=== PATIENT | female | born 1945 ===

== ENCOUNTER 2017-06-20 08:27 | Day surgery (SDC) | payer MEDICARE, OTHER ==
[2017-06-20] MEDS ORDERED: Lactated Ringer's 1,000 ML IV ONE (09:37)
[2017-06-20 10:00] VITALS: O2SAT 100
[2017-06-20] MEDS ORDERED: Propofol 10 mg/ml Inj (20 ML) ONE (10:24)
[2017-06-20] MEDS ORDERED: Lidocaine 2% MPF (5 ml) Inj ONE (10:25)
[2017-06-20 11:26] VITALS: TEMP 98.5
[2017-06-20 11:38] VITALS: BP 122/67; PULSE 62; RESP 15
== END 2017-06-20 12:19 | disposition home or self-care (01) ==
LOC: H.ENDO 08:27
PROVIDERS: ATTEND Internal Medicine Gastroenterology
DX: K62.89 Other specified diseases of anus and rectum (principal); D12.2 Benign neoplasm of ascending colon; K62.4 Stenosis of anus and rectum; K64.0 First degree hemorrhoids; Z85.038 Personal history of other malignant neoplasm of large intestine; K22.9 Disease of esophagus, unspecified; K31.9 Disease of stomach and duodenum, unspecified; K92.2 Gastrointestinal hemorrhage, unspecified; R63.4 Abnormal weight loss; R19.8 Other specified symptoms and signs involving the digestive system and abdomen
CPT/HCPCS: 43239; 45380; 88305; J2704; J7120

== ENCOUNTER 2018-01-28 23:50 | Inpatient (IN) | payer MEDICARE, OTHER ==
[2018-01-29] MEDS ORDERED: Sodium Chloride 0.9% 1,000 ML IV STA ×2 (01:27→03:44)
--- NOTE | 2018-01-29 01:51 | ED PDOC ---
Syncope/Near Syncope/Dizziness Time Seen by Provider: 01/29/18 00:30 Chief Complaint (Nursing): Dizziness/Lightheaded Chief Complaint (Provider): Dizziness/Lightheaded History Per: Patient History/Exam Limitations: no limitations Onset/Duration Of Symptoms: Days (7) Additional Complaint(s): 72 years old female with history of diabetes, hypertension and colon cancer presents to the ED for evaluation of dizziness associated with headache and weakness onset 1 week. Patient reports experiencing subjective fever. She denies any vomiting or diarrhea. Patient reports living healthy alone with family living nearby. pt is oriented to self and place but not time. PMD: Kip Arteaga Past Medical History Reviewed: Historical Data, Nursing Documentation, Vital Signs Vital Signs: Last Vital Signs Temp 99.1 F 01/28/18 23:52 Pulse 78 01/28/18 23:52 Resp 16 01/28/18 23:52 BP 110/74 01/28/18 23:52 Pulse Ox 99 01/28/18 23:52 - Medical History PMH: Anemia, Diabetes, HTN, Hypercholesterolemia Denies: HIV, Chronic Kidney Disease Other PMH: Colon Cancer - Surgical History Other surgeries: Colon resection - Family History Family History: States: Unknown Family Hx - Social History Current smoker - smoking cessation education provided: Yes (2 pipes a day) Alcohol: None Drugs: Denies - Home Medications Home Medications: Ambulatory Orders Medication Instructions Recorded Unobtainable 06/20/17 - Allergies Allergies/Adverse Reactions: Allergies Allergy/AdvReac Type Severity Reaction Status Date / Time No Known Allergies Allergy Verified 06/20/17 09:35 Review of Systems ROS Statement: Except As Marked, All Systems Reviewed And Found Negative Constitutional: Positive for: Fever (Subjective) Gastrointestinal: Negative for: Vomiting, Diarrhea Neurological: Positive for: Weakness, Headache, Dizziness Physical Exam - Reviewed Nursing Documentation Reviewed: Yes Vital Signs Reviewed: Yes - Physical Exam Appears: Positive for: Non-toxic, No Acute Distress Head Exam: Positive for: ATRAUMATIC, NORMOCEPHALIC Skin: Positive for: Normal Color, Warm, Dry Eye Exam: Positive for: Normal appearance, EOMI, PERRL ENT: Positive for: Normal ENT Inspection Neck: Positive for: Normal, Supple Cardiovascular/Chest: Positive for: Regular Rate, Rhythm. Negative for: Murmur Respiratory: Positive for: Normal Breath Sounds. Negative for: Respiratory Distress Gastrointestinal/Abdominal: Positive for: Normal Exam, Soft. Negative for: Tenderness Back: Positive for: Normal Inspection. Negative for: L CVA Tenderness, R CVA Tenderness Extremity: Positive for: Normal ROM. Negative for: Tenderness, Swelling Neurologic/Psych: Positive for: Alert, Oriented (X2 not to time), Other ( Confused) - Laboratory Results Result Diagrams: 01/30/18 05:30 01/30/18 05:30 - ECG O2 Sat by Pulse Oximetry: 99 (RA) Pulse Ox Interpretation: Normal Medical Decision Making Medical Decision Making: Time: 0126 Initial Plan: confusion, dizziness, and generalized weakness rule out electrolyte abnormality and rule out infection --CMP --Chest X-Ray --CT Head w/o Contrast --CBC --NaCl 1,000 ml IV --Blood Culture --Urine C&S --Urinalysis 0233 CT Head FINDINGS: Brain: There is moderate diffuse cerebral atrophy present, consistent with this patient's age. . No hemorrhage. Areas of decreased attenuation noted within the periventricular and subcortical white matter likely related to chronic microangiopathic ischemic changes given the patient's stated age.Ventricles: Unremarkable. No ventriculomegaly. Bones/joints: Unremarkable. No acute fracture. Soft tissues: Unremarkable. Sinuses: Unremarkable as visualized. No acute sinusitis. Mastoid air cells: Unremarkable as visualized. No mastoid effusion. IMPRESSION: No evidence of acute intracranial hemorrhage. Dictated and Authenticated by: Ketan Quarles MD 01/29/2018 2:33 AM Eastern Time ([place] & [place]) 0241 Labs reviewed and show worse BUN than prior test compared with 2017. Patient has acute renal failure and her sugar is 248. Patient will be given insulin. 0342 Patient will be admitted for family practice. Patient is given fluids for possible dehydration. Chest x-ray is negative on my view. family practice resident aware, pt family aware and agreeable with plan. Scribe Attestation: Documented by Nakita Payne, acting as a scribe for Chantelle Singh MD. Provider Scribe Attestation: All medical record entries made by the Scribe were at my direction and personally dictated by me. I have reviewed the chart and agree that the record accurately reflects my personal performance of the history, physical exam, medical decision making, and the department course for this patient. Disposition - Clinical Impression Clinical Impression: Dizziness, Renal failure (ARF), acute on chronic - Patient ED Disposition Is Patient to be Admitted: Yes Counseled Patient/Family Regarding: Studies Performed, Diagnosis - Disposition Disposition Time: 03:00 Condition: STABLE
[2018-01-29 02:09] LABS: BASO % 0.1 % (0.0-2.0); HEMOGLOBIN 13.3 g/dL (12.0-16.0); LYMPH # 0.4 K/uL (1.0-4.3); LYMPH % 6.6 % (20.0-40.0); MEAN CELL VOLUME 90.1 fl (81.0-99.0); MEAN CORPUSCULAR HEMOGLOBIN 30.3 pg (27.0-31.0); MEAN CORPUSCULAR HGB CONC 33.7 g/dL (33.0-37.0); MEAN PLATELET VOLUME 8.9 fl (7.2-11.7); MONO # 0.5 K/uL (0.0-0.8); MONO % 7.1 % (0.0-10.0); NEUT # 5.5 K/uL (1.8-7.0); NEUT % 86.2 % (50.0-75.0); PLATELET COUNT 205 K/uL (130-400); RBC 4.38 Mil/uL (3.80-5.20); WHITE BLOOD COUNT 6.4 K/uL (4.8-10.8)
[2018-01-29 02:14] LABS: ALB/GLOB RATIO 1.4 (1.0-2.1); ALBUMIN 4.8 g/dL (3.5-5.0); CALCIUM 9.3 mg/dL (8.4-10.2)
[2018-01-29] MEDS ORDERED: Insulin Regular 100 units/ml SC STA (02:39)
[2018-01-29] MEDS ORDERED: Insulin Regular 100 units/ml ONE (03:06)
[2018-01-29] MEDS ORDERED: Potassium Chloride 20 mEq ER Tab PO ONE (03:49)
--- NOTE | 2018-01-29 04:48 | CP.PCM.HP ---
History of Present Illness - History of Present Illness History of Present Illness: 72 y/o F with PMHx of HTN, NIDDM, Dementia, Colon CA presents to ED accompanied by her son complaining of feeling weak, and with poor appetite. Unclear for how long patient has had all her symptoms. She lives alone, and has a homemaker who comes M-F for 2-3 hours. As per her son he was called by his sister today, because their Mom was not doing well. His sister told him that when she went to see their Mom today, she found her walking like a " zombi", looking weak, and coughing. When she asked her about the cough patient stated she was having this cough for 1 day. Also patient was c/o stomach pain, poor appetite, nausea, and had a non bloody vomit yesterday morning. As per Son patient was c/o today of subjective fevers, headaches, and feeling dizzy. Denies chest pain, SOB, diarrheas. Patient has a h/o of dementia, which has been getting worse for the last 2 months now. History obtained from her Son. Patient sleepy, and poor historian. Walks with a Cane. PMD: Dr. Arteaga at [facility] PMHx: HTN, DM, HLD, Dementia, Colon CA Allergies: NKDA Meds:Gabapentin 100 mg TID, Aricept 5 mg qd, atorvastatin 20 mg qd, Nifedipine ER 90 mg qd, lisinopril-Hctz 20-25 mg qd, Janumet XR 100-1000 mg qd, omeprazole 20 mg qd, Ranitidine 150 mg HS. Son states that his sister gives patient her meds. Shx: cataract B/L SocialHx: smoker: 2-3 cigarettes/day for years, no etoh, no illicit drugs. She lives alone, and has a homemaker who comes M-F for 2-3 hours. Code status: unclear, her son states that his sister will know. Will ask patient 's daughter for information. Unknown-Full code for now. Harris Villanueva(son): [phone] ED course: VS: WNL PE: mucous membrane very dry, skin as well labs: CBC, CMP reviewed. CT scan reported as no evidence of intracraneal bleeding in preliminary report. Pending official report tx:reg insulin 4 units SC, IV fluids, godwin placed in ER Present on Admission - Present on Admission Any Indicators Present on Admission: No History of DVT/PE: No History of Uncontrolled Diabetes: No Urinary Catheter: No Decubitus Ulcer Present: No Review of Systems - Review of Systems All systems: reviewed and no additional remarkable complaints except (as per HPI ) Past Patient History - Infectious Disease Hx of Infectious Diseases: None - Tetanus Immunizations Tetanus Immunization: Unknown - Past Medical History & Family History Past Medical History?: Yes - Past Social History Alcohol: None Drugs: Denies - CARDIAC Hx Hypercholesterolemia: Yes Hx Hypertension: Yes - PULMONARY Hx Respiratory Disorders: No - NEUROLOGICAL Hx Neurological Disorder: No - HEENT Hx HEENT Problems: No - RENAL Hx Chronic Kidney Disease: No - ENDOCRINE/METABOLIC Hx Endocrine Disorders: Yes Hx Diabetes Mellitus Type 2: Yes - HEMATOLOGICAL/ONCOLOGICAL Hx Anemia: Yes Hx Human Immunodeficiency Virus (HIV): No - INTEGUMENTARY Hx Dermatological Problems: No - MUSCULOSKELETAL/RHEUMATOLOGICAL Hx Musculoskeletal Disorders: No Hx Falls: Yes - GASTROINTESTINAL Hx Gastrointestinal Disorders: No - GENITOURINARY/GYNECOLOGICAL Hx Urinary Tract Infection: Yes - PSYCHIATRIC Hx Psychophysiologic Disorder: No Hx Substance Use: No - SURGICAL HISTORY Hx Surgeries: Yes Hx Hysterectomy: Yes Other/Comment: COLECTOMY - ANESTHESIA Hx Anesthesia: Yes Hx Anesthesia Reactions: No Hx Malignant Hyperthermia: No Meds Allergies/Adverse Reactions: Allergies Allergy/AdvReac Type Severity Reaction Status Date / Time No Known Allergies Allergy Verified 06/20/17 09:35 Physical Exam - Constitutional Appears: Non-toxic, No Acute Distress, Confused - Head Exam Head Exam: ATRAUMATIC, NORMOCEPHALIC - Eye Exam Eye Exam: EOMI, PERRL. absent: Conjunctival injection, Nystagmus - ENT Exam ENT Exam: Mucous Membranes Dry - Respiratory Exam Respiratory Exam: Decreased Breath Sounds (bilateral), Clear to Auscultation Bilateral, NORMAL BREATHING PATTERN - Cardiovascular Exam Cardiovascular Exam: REGULAR RHYTHM, +S1, +S2 - GI/Abdominal Exam GI & Abdominal Exam: Normal Bowel Sounds, Soft. absent: Guarding, Rebound, Rigid, Tenderness - Extremities Exam Extremities exam: Positive for: normal inspection. Negative for: calf tenderness, pedal edema - Back Exam Back exam: absent: CVA tenderness (L), CVA tenderness (R) - Neurological Exam Additional comments: Confused. Sleeping, but able to arouse to verbal and tactile stimuli. Oriented to person - Skin Skin Exam: Dry, Intact, Normal Color, Warm Results - Vital Signs Recent Vital Signs: Last Vital Signs Temp 99.1 F 01/28/18 23:52 Pulse 72 01/29/18 03:18 Resp 16 01/28/18 23:52 BP 110/74 01/28/18 23:52 Pulse Ox 99 01/29/18 03:45 - Labs Result Diagrams: 01/29/18 01:55 01/29/18 01:55 Labs: Laboratory Results - last 24 hr 01/28/18 01/29/18 01/29/18 23:53 01:55 01:55 WBC 6.4 RBC 4.38 Hgb 13.3 Hct 39.4 MCV 90.1 MCH 30.3 MCHC 33.7 RDW 15.0 H Plt Count 205 MPV 8.9 Neut % (Auto) 86.2 H Lymph % (Auto) 6.6 L [place] % (Auto) 7.1 Eos % (Auto) 0.0 Baso % (Auto) 0.1 Neut # (Auto) 5.5 Lymph # (Auto) 0.4 L [place] # (Auto) 0.5 Eos # (Auto) 0.0 Baso # (Auto) 0.0 Sodium 138 Potassium 3.5 L Chloride 89 L Carbon Dioxide 29 Anion Gap 24 H BUN 64 H Creatinine 1.8 H Est GFR ( Amer) 34 Est GFR (Non-Af Amer) 28 POC Glucose (mg/dL) 242 H Random Glucose 248 H Calcium 9.3 Total Bilirubin 0.7 AST 26 ALT 14 Alkaline Phosphatase 73 Total Protein 8.2 Albumin 4.8 Globulin 3.4 Albumin/Globulin Ratio 1.4 01/29/18 03:16 WBC RBC Hgb Hct MCV MCH MCHC RDW Plt Count MPV Neut % (Auto) Lymph % (Auto) [place] % (Auto) Eos % (Auto) Baso % (Auto) Neut # (Auto) Lymph # (Auto) [place] # (Auto) Eos # (Auto) Baso # (Auto) Sodium Potassium Chloride Carbon Dioxide Anion Gap BUN Creatinine Est GFR ( Amer) Est GFR (Non-Af Amer) POC Glucose (mg/dL) 196 H Random Glucose Calcium Total Bilirubin AST ALT Alkaline Phosphatase Total Protein Albumin Globulin Albumin/Globulin Ratio Assessment & Plan - Assessment and Plan (Free Text) Assessment: 72 y/o F with PMHx of HTN, NIDDM, HLD, Dementia who presents with weakness and poor oral intake being admitted for acute kidney injury. Plan: Acute Kidney Injury -MedSurg -most likely 2/2 Prerenal azothemia 2/2 dehydration from poor oral intake in a setting of dementia, but Viral vs Bacteria infection should be r/o -BUN/Cr on admission 64/1.8. Normal creatinine 0.9, and GFR>60 on prior test dated 06/16/17 -afebrile in ER -No tachy, no hypotensive on admission -no leukocytosis in CBC, but noted elevated neutroph % -f/u UA, Urine lytes, and urine culture -f/u Blood Cx done in ER -f/u EKG -CXR: read by me, no gross evidence of infiltration, f/u official report -Will receive IV fluids in ER (fluids have not been given at the time of ER eval ) -will re-test BMP later, after fluids NIDDM -uncontrolled -last HgbA1C on [email or web address] was 10 % on 08/18/16 -hyperglycemia on admission in a setting of suspected dehydration -will hold home Janumet ( sitaglitin/metformin) for now because impaired real function -start Insulin lispro SC by sliding scale low coverage TID -accucheck ACHS -repeat HgbA1C -repeat lipid profile -hypoglycemic protocol HTN -will hold BP meds for now due to BP close to low normal -adjust meds as needed based on her age and BP goals -on Nifedipine ER 90 mg daily at home -on lisinopril-Hctz 20-25 daily at home -last lipid profile done on 08/18/17: remarkable for mild elevated chol/202 Dementia -c/w home aricept 5 mg qd -normal TSH on 08/18/16 -normal Vit B12 on 08/18/16 Hypokalemia -mild, 3.5 on admission -replace with potassium chloride 20 meq once -f/u BMP DVT prophylaxis SCDs Heparin SC - Date & Time Date: 01/29/18 Time: 04:30
[2018-01-29] MEDS ORDERED: Glucagon Recombinant 1 mg Inj IM PRN (04:51)
[2018-01-29] MEDS ORDERED: Dextrose 50% SYRINGE Inj (50 ml) IV PRN (04:51)
[2018-01-29 05:35] LABS: ANISOCYTOSIS SLIGHT; HYPOCHROMIC SLIGHT; LYMPHOCYTE 9 % (20-50); MONOCYTE 5 % (0-10); MYELOCYTE 3 % (0-0); NEUTROPHIL 83 % (42-75); OVALOCYTES SLIGHT; PLATELET ESTIMATE NORMAL (NORMAL); SCHISTOCYTES SLIGHT; TOTAL CELLS COUNTED 100
[2018-01-29 06:59] LABS: SQUAMOUS EPITHIAL < 1 /hpf (0-5); URINE BILIRUBIN NEGATIVE (NEGATIVE); URINE BLOOD NEGATIVE (NEGATIVE); URINE CLARITY SLIGHTY-CLOUDY (Clear); URINE COLOR YELLOW (YELLOW); URINE GLUCOSE (UA) NEG (Normal); URINE LEUKOCYTE ESTERASE NEG Leu/uL (Negative); URINE PROTEIN NEGATIVE (NEGATIVE); URINE UROBILINOGEN 0.2-1.0 mg/dL (0.2-1.0)
--- NOTE | 2018-01-29 09:16 | CARD ---
APPROVED REPORT EKG Measurement Heart [id number] <Conclusion> Sinus rhythm with premature atrial complexes Otherwise normal ECG
[2018-01-29] MEDS: Insulin Lispro (humaLOG) 100 Units/ml Inj SC SCH ×3 (09:23→17:57)
[2018-01-29] MEDS ORDERED: Sodium Chloride 0.9% 1,000 ML IV SCH (10:15)
[2018-01-29 10:20] LABS: CALCIUM 9.3 mg/dL (8.4-10.2)
--- NOTE | 2018-01-29 10:23 | RAD ---
HISTORY: subj fever COMPARISON: 02/20/2015 FINDINGS: LUNGS: No focal airspace opacity. PLEURA: No significant pleural effusion identified, no pneumothorax apparent.Biapical pleural parenchymal thickening noted. CARDIOVASCULAR: Stable. OSSEOUS STRUCTURES: Generalized osteopenia. Degenerative changes in bilateral shoulders. VISUALIZED UPPER ABDOMEN: Upper abdomen is suboptimally evaluated. OTHER FINDINGS: None. IMPRESSION: No focal airspace opacity.
[2018-01-29] MEDS: Pantoprazole 40 mg EC Tab PO SCH (10:28)
[2018-01-29] MEDS: guaiFENesin 600 mg ER Tab PO SCH ×2 (10:28→21:05)
[2018-01-29] MEDS: Sodium Chloride 0.9% 1,000 ML IV SCH ×4 (10:35→21:18)
--- NOTE | 2018-01-29 10:46 | CT ---
PROCEDURE: CT HEAD WITHOUT CONTRAST. HISTORY: headache COMPARISON: Comparison is made with the previous study dated 02/19/2015 TECHNIQUE: Axial computed tomography images were obtained through the head/brain without intravenous contrast. Radiation dose: Total exam DLP = 752.76 mGy-cm. This CT exam was performed using one or more of the following dose reduction techniques: Automated exposure control, adjustment of the mA and/or kV according to patient size, and/or use of iterative reconstruction technique. FINDINGS: HEMORRHAGE: No intracranial hemorrhage. BRAIN: No mass effect or edema. [id number] atrophy is again noted. Mild to moderate white matter chronic microvascular ischemic changes are also noted. VENTRICLES: Unremarkable. No hydrocephalus. CALVARIUM: Unremarkable. PARANASAL SINUSES: Unremarkable as visualized. No significant inflammatory changes. MASTOID AIR CELLS: Unremarkable as visualized. No inflammatory changes. OTHER FINDINGS: None. IMPRESSION: No evidence of acute intracranial hemorrhage mass effect or midline shift. [id number] atrophy and chronic microvascular white matter ischemic disease.
--- NOTE | 2018-01-29 13:14 | CP.PCM.PN ---
Subjective - Date & Time of Evaluation Date of Evaluation: 01/29/18 Time of Evaluation: 13:12 - Subjective Subjective: 72 y/o female w/ hx of DM, HTN, colon cancer s/p partial colectomy admitted w/ c /o dizziness, headaches, and weakness. She is a poor historian, able to identify self, oriented to place, but not time. Objective - Vital Signs/Intake and Output Vital Signs (last 24 hours): Temp Pulse Resp BP Pulse Ox 97.8 F 69 20 138/77 99 01/29/18 08:48 01/29/18 08:48 01/29/18 08:48 01/29/18 08:48 01/29/18 08:48 - Medications Medications: Current Medications Acetaminophen (Tylenol 325mg Tab) 650 mg PO Q6 PRN PRN Reason: Headache Last Admin: 01/29/18 10:12 Dose: 650 mg Atorvastatin Calcium (Lipitor) 20 mg PO HS ROSE Dextrose (Dextrose 50% Inj) 0 ml IV STAT PRN; Protocol PRN Reason: Hypoglycemia Protocol Dextrose (Glutose 15) 0 gm PO ONCE PRN; Protocol PRN Reason: Hypoglycemia Protocol Donepezil HCl (Aricept) 5 mg PO HS ROSE Gabapentin (Neurontin) 100 mg PO TID PRN PRN Reason: Pain, moderate (4-7) Glucagon (Glucagen Diagnostic Kit) 0 mg IM STAT PRN; Protocol PRN Reason: Hypoglycemia Protocol Guaifenesin (Mucinex La) 600 mg PO Q12 ROSE Last Admin: 01/29/18 10:28 Dose: 600 mg Heparin Sodium (Porcine) (Heparin) 5,000 units SC Q8 ROSE PRN Reason: Protocol Last Admin: 01/29/18 10:29 Dose: 5,000 units Sodium Chloride (Sodium Chloride 0.9%) 1,000 mls @ 250 mls/hr IV .Q4H ROSE Stop: 01/30/18 10:15 Last Admin: 01/29/18 10:35 Dose: 250 mls/hr Insulin Human Lispro (Humalog) 0 units SC TID ROSE PRN Reason: Protocol Last Admin: 01/29/18 09:23 Dose: Not Given Pantoprazole Sodium (Protonix Ec Tab) 40 mg PO DAILY ROSE Last Admin: 01/29/18 10:28 Dose: 40 mg - Labs Labs: 01/29/18 01:55 01/29/18 09:57 - Constitutional Appears: No Acute Distress, Confused - ENT Exam ENT Exam: Mucous Membranes Dry - Respiratory Exam Respiratory Exam: Clear to Ausculation Bilateral, NORMAL BREATHING PATTERN - Cardiovascular Exam Cardiovascular Exam: REGULAR RHYTHM, +S1, +S2 - GI/Abdominal Exam GI & Abdominal Exam: Soft, Normal Bowel Sounds. absent: Tenderness - Neurological Exam Neurological Exam: Alert, Awake Additional comments: not oriented to time - Skin Skin Exam: Dry, Intact, Warm Assessment and Plan - Assessment and Plan (Free Text) Assessment: 72 y/o F with PMHx of HTN, NIDDM, HLD, and dementia admitted for acute kidney injury. Plan: 1) Acute Kidney Injury -Cr. 1.4 today from yesterday's 1.8 -most likely 2/2 Prerenal azothemia 2/2 dehydration from poor oral intake in a setting of dementia, but Viral vs Bacteria infection should be r/o -on lisinopril-HCTC 20-25 mg QD at home -BUN/Cr on admission 64/1.8. Normal creatinine 0.9, and GFR>60 on prior test dated 06/16/17 -UA, Urine lytes, and urine culture ordered - Blood Cx done, pending -EKG sinus rhythm, some PACs, otherwise normal -follow I/Os 2. NIDDM -uncontrolled, HgbA1C 01/29/18= 7.1 -hyperglycemia on admission in a setting of suspected dehydration; no ketonurea -will hold home Janumet ( sitaglitin/metformin) for now because impaired real function -start Insulin lispro SC by sliding scale low coverage TID -accucheck ACHS -hypoglycemic protocol 3. HTN -will hold BP meds for now due to BP close to low normal -adjust meds as needed based on her age and BP goals -on Nifedipine ER 90 mg daily at home -on lisinopril-Hctz 20-25 daily at home 4. Dementia -c/w home aricept 5 mg qd -normal TSH on 08/18/16 -normal Vit B12 on 08/18/16 5. Hypokalemia -K+ 3.8 today -replaced with potassium chloride 20 meq once -f/u BMP 6. Diet -consistent carbohydrate 7. DVT prophylaxis SCDs Heparin SC
--- NOTE | 2018-01-29 18:58 | RAD ---
HISTORY: abdominal pain COMPARISON: CT scan of the abdomen and pelvis dated 09/15/2014. FINDINGS: BOWEL: Prominent amount of retained colonic stool. No obstruction. No free air. BONES: Normal. OTHER FINDINGS: X-ray artifact limits evaluation. IMPRESSION: X-ray artifact slightly limits evaluation. Prominent amount of retained colonic stool. No obstruction.
[2018-01-29] MEDS ORDERED: Chlorhexidine Gluconate 1 APPL/PKT TP ONE (19:36)
[2018-01-29] MEDS ORDERED: Lactulose 10 gm/15 ml Syrup PO ONE (20:05)
[2018-01-30] MEDS: Sodium Chloride 0.9% 1,000 ML IV SCH ×4 (02:32→21:00)
[2018-01-30 06:17] LABS: HEMOGLOBIN 11.8 g/dL (12.0-16.0); MEAN CELL VOLUME 90.8 fl (81.0-99.0); MEAN CORPUSCULAR HEMOGLOBIN 30.8 pg (27.0-31.0); MEAN CORPUSCULAR HGB CONC 33.9 g/dL (33.0-37.0); RBC 3.83 Mil/uL (3.80-5.20); RED CELL DISTRIBUTION WIDTH 15.1 % (11.5-14.5); WHITE BLOOD COUNT 4.2 K/uL (4.8-10.8)
[2018-01-30 06:43] LABS: BLOOD UREA NITROGEN 31 mg/dl (7-17); CALCIUM 8.6 mg/dL (8.4-10.2); GFR AFRICAN-AMERICAN > 60; GFR NON-AFRICAN AMERICAN > 60
[2018-01-30] MEDS ORDERED: Potassium Chloride 20 mEq/15 ml LIQ UD PO ONE (07:03)
[2018-01-30] MEDS: Pantoprazole 40 mg EC Tab PO SCH (08:57)
[2018-01-30] MEDS: guaiFENesin 600 mg ER Tab PO SCH ×2 (08:57→21:52)
[2018-01-30] MEDS ORDERED: Magnesium Hydroxide Susp 30 ml UD PO SCH (09:00)
[2018-01-30] MEDS ORDERED: Magnesium Hydroxide Susp 30 ml UD PO ONE (09:02)
[2018-01-30] MEDS: Insulin Lispro (humaLOG) 100 Units/ml Inj SC SCH ×3 (09:57→16:58)
[2018-01-30] MEDS ORDERED: Alum-Mag Hydrox-Simethicone Susp (30 mL) PO ONE (10:01)
--- NOTE | 2018-01-30 10:40 | CP.PCM.PN ---
Subjective - Date & Time of Evaluation Date of Evaluation: 01/30/18 Time of Evaluation: 10:38 - Subjective Subjective: In-demand #[id number]. Patient is seen and examined at bedside. She is a poor historian, more alert than yesterday. C/o abdominal pain w/ constipation, and headache. Objective - Vital Signs/Intake and Output Vital Signs (last 24 hours): Temp Pulse Resp BP Pulse Ox 98.0 F 54 L 18 152/77 H 96 01/30/18 08:06 01/30/18 08:06 01/30/18 08:06 01/30/18 08:06 01/30/18 08:06 - Medications Medications: Current Medications Acetaminophen (Tylenol 325mg Tab) 650 mg PO Q6 PRN PRN Reason: Headache Last Admin: 01/29/18 10:12 Dose: 650 mg Atorvastatin Calcium (Lipitor) 20 mg PO HS [facility] Last Admin: 01/29/18 21:05 Dose: 20 mg Dextrose (Dextrose 50% Inj) 0 ml IV STAT PRN; Protocol PRN Reason: Hypoglycemia Protocol Dextrose (Glutose 15) 0 gm PO ONCE PRN; Protocol PRN Reason: Hypoglycemia Protocol Donepezil HCl (Aricept) 5 mg PO HS [facility] Last Admin: 01/29/18 21:16 Dose: 5 mg Gabapentin (Neurontin) 100 mg PO TID PRN PRN Reason: Pain, moderate (4-7) Glucagon (Glucagen Diagnostic Kit) 0 mg IM STAT PRN; Protocol PRN Reason: Hypoglycemia Protocol Guaifenesin (Mucinex La) 600 mg PO Q12 [facility] Last Admin: 01/30/18 08:57 Dose: 600 mg Heparin Sodium (Porcine) (Heparin) 5,000 units SC Q8 ROSE PRN Reason: Protocol Last Admin: 01/30/18 08:57 Dose: 5,000 units Insulin Human Lispro (Humalog) 0 units SC TID [facility] PRN Reason: Protocol Last Admin: 01/30/18 09:57 Dose: Not Given Pantoprazole Sodium (Protonix Ec Tab) 40 mg PO DAILY [facility] Last Admin: 01/30/18 08:57 Dose: 40 mg - Labs Labs: 01/30/18 05:30 01/30/18 05:30 - Constitutional Appears: Well, No Acute Distress - Head Exam Head Exam: ATRAUMATIC, NORMAL INSPECTION - ENT Exam ENT Exam: Mucous Membranes Dry (improved from yesterday) - Respiratory Exam Respiratory Exam: Clear to Ausculation Bilateral, NORMAL BREATHING PATTERN - Cardiovascular Exam Cardiovascular Exam: REGULAR RHYTHM, +S1, +S2 - GI/Abdominal Exam GI & Abdominal Exam: Distended, Soft, Tenderness, Hypoactive Bowel Sounds - Extremities Exam Extremities Exam: absent: Pedal Edema, Tenderness - Neurological Exam Neurological Exam: Alert, Awake - Skin Skin Exam: Dry, Intact, Warm Assessment and Plan - Assessment and Plan (Free Text) Assessment: 72 y/o F with PMHx of HTN, NIDDM, HLD, and dementia admitted for acute kidney injury. Plan: 1) Acute Kidney Injury -Cr. improving, is now 0.7 -hydrating w/ IV NS 100mL/hr -most likely 2/2 Prerenal azothemia 2/2 dehydration from poor oral intake in a setting of dementia, but Viral vs Bacteria infection should be r/o -on lisinopril-HCTC 20-25 mg QD at home -BUN/Cr on admission 64/1.8. Normal creatinine 0.9, and GFR>60 on prior test dated 06/16/17 -UA, Urine lytes, and urine culture ordered - Blood Cx done, pending -EKG sinus rhythm, some PACs, otherwise normal -follow I/Os 2) Abdominal pain -KUB: no obstruction, retained colonic stool -Patient declined fleet enema -1 BM today -Maalox 30 mL PO given 3)Headache -likely 2/2 dehydration -Head CT scan 01/29 no acute changes -No visual changes/eye pain 4. NIDDM -uncontrolled, HgbA1C 01/29/18= 7.1 -hyperglycemia on admission in a setting of suspected dehydration; no ketonurea -will hold home Janumet ( sitaglitin/metformin) for now because impaired real function -start Insulin lispro SC by sliding scale low coverage TID -accucheck ACHS -hypoglycemic protocol 5. HTN -will hold BP meds for now due to BP close to low normal -adjust meds as needed based on her age and BP goals -on Nifedipine ER 90 mg daily at home -on lisinopril-Hctz 20-25 daily at home 6. Dementia -c/w home aricept 5 mg qd -normal TSH on 08/18/16 -normal Vit B12 on 08/18/16 7. Hypokalemia -K+ 3.0 today -replaced with potassium chloride 40 meq once -f/u BMP 8. Diet -consistent carbohydrate 9. DVT prophylaxis SCDs Heparin SC
--- NOTE | 2018-01-30 17:05 | CT ---
Date of service: 01/30/2018 PROCEDURE: CT Abdomen and Pelvis without intravenous contrast HISTORY: persistent abdominal pain/nausea COMPARISON: CT scan of the abdomen pelvis dated 09/15/2014. TECHNIQUE: Contiguous images were obtained from the domes of the diaphragms to the upper thighs without the administration of intravenous contrast. Oral contrast was not administered. Radiation dose: Total exam DLP = 365.4 mGy-cm. This CT exam was performed using one or more of the following dose reduction techniques: Automated exposure control, adjustment of the mA and/or kV according to patient size, and/or use of iterative reconstruction technique. FINDINGS: LOWER THORAX: Cardiomegaly. No focal consolidation. Trace left pleural effusion. LIVER: Small too small to characterize cystic structure in the posterior right hepatic lobe. No gross lesion or ductal dilatation. GALLBLADDER AND BILE DUCTS: Unremarkable. Mildly prominent CBD PANCREAS: Stable appearance of cystic structure in the pancreatic body. No gross lesion or ductal dilatation. SPLEEN: Unremarkable. ADRENALS: Unremarkable. No mass. KIDNEYS AND URETERS: Stable right upper pole renal cyst. No hydronephrosis. No solid mass. VASCULATURE: Unremarkable. No aortic aneurysm. BOWEL: Proximal jejunojejunal intussusception with marked dilatation of the duodenum and stomach. Collapse of small-bowel distally. No gross mural thickening. APPENDIX: No findings to suggest acute appendicitis. PERITONEUM: Unremarkable. No free fluid. No free air. LYMPH NODES: Unremarkable. No enlarged lymph nodes. BLADDER: Unremarkable. REPRODUCTIVE: Unremarkable. BONES: No acute fracture. OTHER FINDINGS: None. IMPRESSION: Limited evaluation due due to absence of intravenous and enteric contrast. Proximal jejunojejunal intussusception with marked dilatation of the duodenum and stomach. Additional findings as above. Findings conveyed to PRISCILLA Marie by Dr. Beebe at 4:59 p.m. on 01/30/2018.
--- NOTE | 2018-01-30 22:52 | CP.PCM.CON ---
<Marine Jones - Last Filed: 01/30/18 23:33> History of Present Illness - History of Present Illness History of Present Illness: Surgery 72 F w PMH of colon CA s/p colectomy, chemo, gastritis , DM and dementia came with weakness, decreased appetite, epigastric pain, nausea and vomiting. Surgery is consulted to evaluate for intussusception. Pt has dementia and history and ROS is taken from the family and from chart. Pt had endoscopy done in 05/2017 for unintentional weight loss and survaillence colonoscopy done. It showed gastritis and h pylori. Pt was treated for h pylori and completed the treatment. Colonoscopy showed ascending colon polyp and narrowing of the rectum. PT has been having these symptoms since for about 6 months since then. Pain is mainly located on epigastric area. sharp and doesn't radiate. pt has been constipated and relieved with metamucil. Reports nausea and vomiting. Had an episode of non bilious non bloody emesis 2 days ago. Family also reports unintentional weight loss of about 20 lbs in last 3 month. Denies fever, diarrhea, CP, SOB, hematemesis, hematochezia, hematuria, dysuria. Pt was admitted for CAITLYN, dehydration, AMS . CAITLYN Now resolved after hydration. Pt is combative and refusing physical exam, NGT and Grant at this time. PMH see above. PSH : hysterectomy for fibroids 30 yrs ago, colectomy at [facility] in 1999. cataract sx , EGD/colon in 2016 SS: smoker: 2 cigars a day. non drinker, no drug use. Pt lives by herself and normally is able to perform daily activity of living with help. Pt has home help. Walks with walker. Family lives near by. No advance directives, No POA. Family (children) makes medical decisions for her. They wishes to remain full code. Review of Systems - Review of Systems Systems not reviewed;Unavailable: Dementia Review of Systems: See HPI Past Patient History - Infectious Disease Hx of Infectious Diseases: None - Tetanus Immunizations Tetanus Immunization: Unknown - Past Medical History & Family History Past Medical History?: Yes - Past Social History Smoking Status: Current Some Days Smoker Cigar Use: Yes Drugs: Denies Home Situation {Lives}: Alone - CARDIAC Hx Hypercholesterolemia: Yes Hx Hypertension: Yes - PULMONARY Hx Respiratory Disorders: No - NEUROLOGICAL Hx Neurological Disorder: No - HEENT Hx HEENT Problems: No - RENAL Hx Chronic Kidney Disease: No - ENDOCRINE/METABOLIC Hx Endocrine Disorders: Yes Hx Diabetes Mellitus Type 2: Yes - HEMATOLOGICAL/ONCOLOGICAL Hx Anemia: Yes Hx Human Immunodeficiency Virus (HIV): No - INTEGUMENTARY Hx Dermatological Problems: No - MUSCULOSKELETAL/RHEUMATOLOGICAL Hx Musculoskeletal Disorders: No Hx Falls: No - GASTROINTESTINAL Hx Gastrointestinal Disorders: No Other/Comment: hx colectomy due to colon ca - GENITOURINARY/GYNECOLOGICAL Hx Urinary Tract Infection: Yes - PSYCHIATRIC Hx Psychophysiologic Disorder: No - SURGICAL HISTORY Hx Surgeries: Yes Hx Hysterectomy: Yes Other/Comment: COLECTOMY - ANESTHESIA Hx Anesthesia: Yes Hx Anesthesia Reactions: No Hx Malignant Hyperthermia: No Meds Allergies/Adverse Reactions: Allergies Allergy/AdvReac Type Severity Reaction Status Date / Time No Known Allergies Allergy Verified 06/20/17 09:35 - Medications Medications: Current Medications Acetaminophen (Tylenol 325mg Tab) 650 mg PO Q6 PRN PRN Reason: Headache Last Admin: 01/29/18 10:12 Dose: 650 mg Atorvastatin Calcium (Lipitor) 20 mg PO HS [facility] Last Admin: 01/30/18 21:52 Dose: 20 mg Dextrose (Dextrose 50% Inj) 0 ml IV STAT PRN; Protocol PRN Reason: Hypoglycemia Protocol Dextrose (Glutose 15) 0 gm PO ONCE PRN; Protocol PRN Reason: Hypoglycemia Protocol Donepezil HCl (Aricept) 5 mg PO HS [facility] Last Admin: 01/30/18 21:51 Dose: 5 mg Gabapentin (Neurontin) 100 mg PO TID PRN PRN Reason: Pain, moderate (4-7) Glucagon (Glucagen Diagnostic Kit) 0 mg IM STAT PRN; Protocol PRN Reason: Hypoglycemia Protocol Guaifenesin (Mucinex La) 600 mg PO Q12 [facility] Last Admin: 01/30/18 21:52 Dose: 600 mg Heparin Sodium (Porcine) (Heparin) 5,000 units SC Q8 [facility] PRN Reason: Protocol Last Admin: 01/30/18 17:01 Dose: Not Given Sodium Chloride (Sodium Chloride 0.9%) 1,000 mls @ 100 mls/hr IV .Q10H [facility] Stop: 01/31/18 10:54 Last Admin: 01/30/18 11:20 Dose: 100 mls/hr Insulin Human Lispro (Humalog) 0 units SC TID [facility] PRN Reason: Protocol Last Admin: 01/30/18 16:58 Dose: Not Given Ondansetron HCl (Zofran Inj) 4 mg IVP Q4 PRN PRN Reason: Nausea/Vomiting Last Admin: 01/30/18 15:42 Dose: 4 mg Pantoprazole Sodium (Protonix Ec Tab) 40 mg PO DAILY [facility] Last Admin: 01/30/18 08:57 Dose: 40 mg Physical Exam - Constitutional Appears: Non-toxic, Combative, Confused, Cachectic - Head Exam Head Exam: ATRAUMATIC, NORMAL INSPECTION, NORMOCEPHALIC - Eye Exam Eye Exam: EOMI, Normal appearance, PERRL Pupil Exam: NORMAL ACCOMODATION, PERRL - ENT Exam ENT Exam: Mucous Membranes Moist, Normal Exam - Neck Exam Neck exam: Positive for: Normal Inspection - Respiratory Exam Respiratory Exam: NORMAL BREATHING PATTERN - Cardiovascular Exam Cardiovascular Exam: Bradycardia - GI/Abdominal Exam GI & Abdominal Exam: Distended, Soft, Tenderness. absent: Firm, Guarding, Hernia, Mass, Pulsatile Mass, Rebound, Rigid - Rectal Exam Rectal Exam: Deferred - Extremities Exam Extremities exam: Positive for: normal inspection - Psychiatric Exam Psychiatric exam: Agitated - Skin Skin Exam: Intact, Warm Results - Vital Signs Recent Vital Signs: Last Vital Signs Temp 98.6 F 01/30/18 17:00 Pulse 54 L 01/30/18 17:00 Resp 20 01/30/18 17:00 BP 167/79 H 01/30/18 17:00 Pulse Ox 100 01/30/18 17:00 - Labs Result Diagrams: 01/30/18 05:30 01/30/18 05:30 Labs: Laboratory Results - last 24 hr 01/29/18 01/30/18 01/30/18 21:57 05:30 05:30 WBC 4.2 L RBC 3.83 Hgb 11.8 L Hct 34.8 MCV 90.8 MCH 30.8 MCHC 33.9 RDW 15.1 H Plt Count 153 Sodium 138 Potassium 3.0 L Chloride 103 Carbon Dioxide 28 Anion Gap 10 BUN 31 H Creatinine 0.7 Est GFR ( Amer) > 60 Est GFR (Non-Af Amer) > 60 POC Glucose (mg/dL) 145 H Random Glucose 112 H Calcium 8.6 01/30/18 01/30/18 01/30/18 05:39 10:58 15:28 WBC RBC Hgb Hct MCV MCH MCHC RDW Plt Count Sodium Potassium Chloride Carbon Dioxide Anion Gap BUN Creatinine Est GFR ( Amer) Est GFR (Non-Af Amer) POC Glucose (mg/dL) 126 H 105 134 H Random Glucose Calcium 01/30/18 21:07 WBC RBC Hgb Hct MCV MCH MCHC RDW Plt Count Sodium Potassium Chloride Carbon Dioxide Anion Gap BUN Creatinine Est GFR ( Amer) Est GFR (Non-Af Amer) POC Glucose (mg/dL) 156 H Random Glucose Calcium Assessment & Plan - Assessment and Plan (Free Text) Assessment: 72 F w ho colon CA , h-pylori now have intussusception CT : proximal small bowel jejuno-jejunal intussusception with markedly dilated stomach and duodenum Pt is high risk surgical candidate with multiple coormorbidities including Colon CA No acute surgical intervention at this time: Pt is currently hemodynamically stable. NPO IVF NGT to decompress stomach: Pt refusing. May require chemical/physical restraints. Pt is a high risk for aspiration Strict intake and output: Grant : Pt refusing. Recommend GI consult: for possible double lumen enteroscopy to reduce intussusception. CEA: to r/o recurrent CA Recommend PET CT w IV/PO contrast to r/o recurrent metastatic CA DW Dr. Clemons <Sajan Clemons - Last Filed: 02/02/18 16:26> Results - Vital Signs Recent Vital Signs: Last Vital Signs Temp 98.8 F 02/02/18 08:23 Pulse 92 H 02/02/18 08:23 Resp 20 02/02/18 08:23 BP 143/66 02/02/18 08:23 Pulse Ox 98 02/02/18 08:23 - Labs Result Diagrams: 02/01/18 08:30 02/02/18 05:55 Labs: Laboratory Results - last 24 hr 02/01/18 02/01/18 02/02/18 16:16 21:08 05:55 Sodium 139 Potassium 3.1 L Chloride 96 L Carbon Dioxide 33 H Anion Gap 13 BUN 12 Creatinine 0.6 L Est GFR ( Amer) > 60 Est GFR (Non-Af Amer) > 60 POC Glucose (mg/dL) 104 141 H Random Glucose 155 H Calcium 8.8 Phosphorus 2.1 L Magnesium 2.0 02/02/18 02/02/18 06:05 11:25 Sodium Potassium Chloride Carbon Dioxide Anion Gap BUN Creatinine Est GFR ( Amer) Est GFR (Non-Af Amer) POC Glucose (mg/dL) 149 H 130 H Random Glucose Calcium Phosphorus Magnesium Assessment & Plan - Assessment and Plan (Free Text) Plan: I personally saw and examined the patient with the resident staff and agree with the above assessment and plan. I personally reviewed the available diagnostic images and imaging reports. Proximal SB intussception just distal to LOT causing proximal SBO/GOO. NGT, GI for EGD/enteroscopy eval and reduction. No acute need for surgical intervention and patient high risk. Less invasive endoscopy better treatment option. Cause of intusception further eval for pathological lead point. Also hx of CRC, CT IV/PO contrast for surveillance or PET/CT when current issue resolves. - Date & Time Date: 01/31/18
[2018-01-30] MEDS ORDERED: Chlorhexidine Gluconate 1 APPL/PKT TP ONE (23:16)
[2018-01-31] MEDS: Sodium Chloride 0.9% 1,000 ML IV SCH ×2 (00:57→07:00)
[2018-01-31 06:57] LABS: BASO % 0.3 % (0.0-2.0); EOS % 0.2 % (0.0-4.0); HEMOGLOBIN 12.1 g/dL (12.0-16.0); LYMPH # 0.7 K/uL (1.0-4.3); LYMPH % 17.1 % (20.0-40.0); MEAN CELL VOLUME 90.3 fl (81.0-99.0); MEAN CORPUSCULAR HEMOGLOBIN 30.8 pg (27.0-31.0); MEAN CORPUSCULAR HGB CONC 34.2 g/dL (33.0-37.0); MEAN PLATELET VOLUME 8.7 fl (7.2-11.7); MONO # 0.5 K/uL (0.0-0.8); MONO % 11.5 % (0.0-10.0); NEUT % 70.9 % (50.0-75.0); NRBC % 0.1 % (0.0-0.0); RBC 3.93 Mil/uL (3.80-5.20); RED CELL DISTRIBUTION WIDTH 14.9 % (11.5-14.5); WHITE BLOOD COUNT 4.3 K/uL (4.8-10.8)
[2018-01-31 07:02] LABS: INR 1.2 (0.9-1.2); PARTIAL THROMBOPLASTIN TIME 35.7 Seconds (25.6-37.1); PROTHROMBIN TIME 12.9 Seconds (9.8-13.1)
[2018-01-31 07:18] LABS: B-TYPE NATRIURETIC PEPTIDE 834 pg/ml (0-900)
[2018-01-31 08:03] LABS: BLOOD UREA NITROGEN 22 mg/dl (7-17); GFR AFRICAN-AMERICAN > 60; GFR NON-AFRICAN AMERICAN > 60
[2018-01-31 08:17] VITALS: RESP 20
--- NOTE | 2018-01-31 08:33 | CP.PCM.CON ---
<Jad Clemons - Last Filed: 01/31/18 10:11> History of Present Illness - History of Present Illness History of Present Illness: PGY5 Initial GI Consult Note Debora Villanueva is a 72 F w PMH of colon CA s/p colectomy, chemo?, H. Pylori , DM and dementia came with weakness, epigastric pain, intractable nausea and vomiting. Pt has dementia, so most of the hx was obtained from staff and chart. Pt had endoscopy and colonoscopy in 05/2017 for unintentional weight loss which revealed H. pylori gastitis, hyperplastic polyp in the ascending, and narrowing of the rectum. Pt was treated for h pylori and completed the treatment. Pt has apparently having these symptoms for the past 6 months. She does not cpmplain of any abd pain at this time, but apparently stated that her pain was previously in the epigastum. She had an episode of non bilious non bloody emesis 2 days ago. Family also reports unintentional weight loss of about 20 lbs in last 3 month and constipation Denies fever, diarrhea, CP, SOB, hematemesis, hematochezia, hematuria, dysuria. NG godwin was placed and about 1L of green bile was withdrawn. PMH see above. PSH : hysterectomy for fibroids 30 yrs ago, colectomy at [facility] in 1999. cataract sx , EGD/colon in 2016 SS: smoker: 2 cigars a day. non drinker, no drug use. Pt lives by herself and normally is able to perform daily activity of living with help. Pt has home help. ROS: 12 point ROs conducted, neg other than what is stated above Past Patient History - Infectious Disease Hx of Infectious Diseases: None - Tetanus Immunizations Tetanus Immunization: Unknown - Past Medical History & Family History Past Medical History?: Yes - Past Social History Smoking Status: Current Some Days Smoker Cigar Use: Yes Drugs: Denies Home Situation {Lives}: Alone - CARDIAC Hx Hypercholesterolemia: Yes Hx Hypertension: Yes - PULMONARY Hx Respiratory Disorders: No - NEUROLOGICAL Hx Neurological Disorder: No - HEENT Hx HEENT Problems: No - RENAL Hx Chronic Kidney Disease: No - ENDOCRINE/METABOLIC Hx Endocrine Disorders: Yes Hx Diabetes Mellitus Type 2: Yes - HEMATOLOGICAL/ONCOLOGICAL Hx Anemia: Yes Hx Human Immunodeficiency Virus (HIV): No - INTEGUMENTARY Hx Dermatological Problems: No - MUSCULOSKELETAL/RHEUMATOLOGICAL Hx Musculoskeletal Disorders: No Hx Falls: No - GASTROINTESTINAL Hx Gastrointestinal Disorders: No Other/Comment: hx colectomy due to colon ca - GENITOURINARY/GYNECOLOGICAL Hx Urinary Tract Infection: Yes - PSYCHIATRIC Hx Psychophysiologic Disorder: No - SURGICAL HISTORY Hx Surgeries: Yes Hx Hysterectomy: Yes Other/Comment: COLECTOMY - ANESTHESIA Hx Anesthesia: Yes Hx Anesthesia Reactions: No Hx Malignant Hyperthermia: No Meds Allergies/Adverse Reactions: Allergies Allergy/AdvReac Type Severity Reaction Status Date / Time No Known Allergies Allergy Verified 06/20/17 09:35 - Medications Medications: Current Medications Acetaminophen (Tylenol 325mg Tab) 650 mg PO Q6 PRN PRN Reason: Headache Last Admin: 01/29/18 10:12 Dose: 650 mg Atorvastatin Calcium (Lipitor) 20 mg PO HS [facility] Last Admin: 01/30/18 21:52 Dose: Not Given Dextrose (Dextrose 50% Inj) 0 ml IV STAT PRN; Protocol PRN Reason: Hypoglycemia Protocol Dextrose (Glutose 15) 0 gm PO ONCE PRN; Protocol PRN Reason: Hypoglycemia Protocol Donepezil HCl (Aricept) 5 mg PO HS [facility] Last Admin: 01/30/18 22:00 Dose: Not Given Gabapentin (Neurontin) 100 mg PO TID PRN PRN Reason: Pain, moderate (4-7) Glucagon (Glucagen Diagnostic Kit) 0 mg IM STAT PRN; Protocol PRN Reason: Hypoglycemia Protocol Guaifenesin (Mucinex La) 600 mg PO Q12 [facility] Last Admin: 01/30/18 21:52 Dose: Not Given Heparin Sodium (Porcine) (Heparin) 5,000 units SC Q8 [facility] PRN Reason: Protocol Last Admin: 01/31/18 01:33 Dose: 5,000 units Sodium Chloride (Sodium Chloride 0.9%) 1,000 mls @ 100 mls/hr IV .Q10H [facility] Stop: 01/31/18 10:54 Last Admin: 01/31/18 00:57 Dose: 100 mls/hr Insulin Human Lispro (Humalog) 0 units SC TID [facility] PRN Reason: Protocol Last Admin: 01/30/18 16:58 Dose: Not Given Nicotine (Nicoderm Cq) 1 patch TD DAILY [facility] Ondansetron HCl (Zofran Inj) 4 mg IVP Q4 PRN PRN Reason: Nausea/Vomiting Last Admin: 01/30/18 15:42 Dose: 4 mg Pantoprazole Sodium (Protonix Ec Tab) 40 mg PO DAILY [facility] Last Admin: 01/30/18 08:57 Dose: 40 mg Physical Exam - Constitutional Appears: Well, No Acute Distress - Head Exam Head Exam: ATRAUMATIC, NORMOCEPHALIC - Eye Exam Eye Exam: Normal appearance - ENT Exam ENT Exam: Mucous Membranes Moist, Normal Exam Additional comments: NG tube in place - Neck Exam Neck exam: Positive for: Normal Inspection. Negative for: Tenderness - Respiratory Exam Respiratory Exam: Clear to Auscultation Bilateral, NORMAL BREATHING PATTERN. absent: Rales, Rhonchi, Wheezes, Respiratory Distress - Cardiovascular Exam Cardiovascular Exam: REGULAR RHYTHM, +S1, +S2 - GI/Abdominal Exam GI & Abdominal Exam: Normal Bowel Sounds, Soft. absent: Diminished Bowel Sounds , Distended, Guarding, Mass, Organomegaly, Rebound, Rigid, Tenderness - Extremities Exam Extremities exam: Negative for: joint swelling, pedal edema - Neurological Exam Neurological exam: Altered - Psychiatric Exam Additional comments: could not assess due to dementia - Skin Skin Exam: Dry, Intact, Normal Color, Warm Results - Vital Signs Recent Vital Signs: Last Vital Signs Temp 97.9 F 01/31/18 08:16 Pulse 63 01/31/18 08:16 Resp 20 01/31/18 08:16 BP 165/82 H 01/31/18 08:16 Pulse Ox 97 01/31/18 08:16 - Labs Result Diagrams: 01/31/18 06:40 01/31/18 06:40 Labs: Laboratory Results - last 24 hr 01/30/18 01/30/18 01/30/18 10:58 15:28 21:07 WBC RBC Hgb Hct MCV MCH MCHC RDW Plt Count MPV Neut % (Auto) Lymph % (Auto) [place] % (Auto) Eos % (Auto) Baso % (Auto) Neut # (Auto) Lymph # (Auto) [place] # (Auto) Eos # (Auto) Baso # (Auto) PT INR APTT Sodium Potassium Chloride Carbon Dioxide Anion Gap BUN Creatinine Est GFR ( Amer) Est GFR (Non-Af Amer) POC Glucose (mg/dL) 105 134 H 156 H Random Glucose Lactic Acid Calcium NT-Pro-B Natriuret Pep Carcinoembryonic Ag 01/31/18 01/31/18 01/31/18 05:21 06:40 06:40 WBC 4.3 L RBC 3.93 Hgb 12.1 Hct 35.5 MCV 90.3 MCH 30.8 MCHC 34.2 RDW 14.9 H Plt Count 158 MPV 8.7 Neut % (Auto) 70.9 Lymph % (Auto) 17.1 L [place] % (Auto) 11.5 H Eos % (Auto) 0.2 Baso % (Auto) 0.3 Neut # (Auto) 3.0 Lymph # (Auto) 0.7 L [place] # (Auto) 0.5 Eos # (Auto) 0.0 Baso # (Auto) 0.0 PT INR APTT Sodium 139 Potassium 3.1 L Chloride 101 Carbon Dioxide 27 Anion Gap 14 BUN 22 H Creatinine 0.6 L Est GFR ( Amer) > 60 Est GFR (Non-Af Amer) > 60 POC Glucose (mg/dL) 95 Random Glucose 92 Lactic Acid Calcium 9.0 NT-Pro-B Natriuret Pep 834 Carcinoembryonic Ag 4.4 H 01/31/18 01/31/18 06:40 06:40 WBC RBC Hgb Hct MCV MCH MCHC RDW Plt Count MPV Neut % (Auto) Lymph % (Auto) [place] % (Auto) Eos % (Auto) Baso % (Auto) Neut # (Auto) Lymph # (Auto) [place] # (Auto) Eos # (Auto) Baso # (Auto) PT 12.9 INR 1.2 APTT 35.7 Sodium Potassium Chloride Carbon Dioxide Anion Gap BUN Creatinine Est GFR ( Amer) Est GFR (Non-Af Amer) POC Glucose (mg/dL) Random Glucose Lactic Acid 1.1 Calcium NT-Pro-B Natriuret Pep Carcinoembryonic Ag Assessment & Plan - Assessment and Plan (Free Text) Assessment: Debora Villanueva is a 72 F w PMH of colon CA s/p colectomy, chemo?, H. Pylori , DM and dementia came with weakness, epigastric pain, intractable nausea and vomiting.CT Abd/Pelv revealed proximal small bowel jejuno-jejunal intussusception with markedly dilated stomach and duodenum jejuno-jejunal intussusception SBO 2/2 above intractable nausea and vomiting 2/2 above Weightloss Hx. of h. pylori Plan Not a surgical cannidate as per Surgery Keep NPO agree with NG tube NG care as per surgery since the location of the intussusception is in the jejuem, recommend balloon enteroscopy at [facility] or [facility]. continue IV fluids rest of care as per Primary team D/W Dr. Hewitt <Brandy Hewitt - Last Filed: 01/31/18 13:46> Meds - Medications Medications: Current Medications Acetaminophen (Tylenol 325mg Tab) 650 mg PO Q6 PRN PRN Reason: Headache Last Admin: 01/29/18 10:12 Dose: 650 mg Atorvastatin Calcium (Lipitor) 20 mg PO HS [facility] Last Admin: 01/30/18 21:52 Dose: Not Given Dextrose (Dextrose 50% Inj) 0 ml IV STAT PRN; Protocol PRN Reason: Hypoglycemia Protocol Dextrose (Glutose 15) 0 gm PO ONCE PRN; Protocol PRN Reason: Hypoglycemia Protocol Donepezil HCl (Aricept) 5 mg PO HS [facility] Last Admin: 01/30/18 22:00 Dose: Not Given Gabapentin (Neurontin) 100 mg PO TID PRN PRN Reason: Pain, moderate (4-7) Glucagon (Glucagen Diagnostic Kit) 0 mg IM STAT PRN; Protocol PRN Reason: Hypoglycemia Protocol Guaifenesin (Mucinex La) 600 mg PO Q12 [facility] Last Admin: 01/31/18 10:39 Dose: Not Given Heparin Sodium (Porcine) (Heparin) 5,000 units SC Q8 [facility] PRN Reason: Protocol Last Admin: 01/31/18 10:41 Dose: 5,000 units Oral Electrolytes (Kcl 40meq/ 0.9% 1l) 1,000 mls @ 100 mls/hr IV .Q10H [facility] Last Admin: 01/31/18 11:26 Dose: 100 mls/hr Potassium Chloride (Potassium Cl 10meq/50ml Sterile Water) 50 mls @ 50 mls/hr IVPB Q1 [facility] Stop: 01/31/18 14:59 Last Admin: 01/31/18 11:25 Dose: 50 mls/hr Insulin Human Lispro (Humalog) 0 units SC TID [facility] PRN Reason: Protocol Last Admin: 01/31/18 10:39 Dose: Not Given Lidocaine (Lidoderm) 1 ea TD DAILY [facility] Nicotine (Nicoderm Cq) 1 patch TD DAILY [facility] Last Admin: 01/31/18 10:40 Dose: 1 patch Ondansetron HCl (Zofran Inj) 4 mg IVP Q4 PRN PRN Reason: Nausea/Vomiting Last Admin: 01/30/18 15:42 Dose: 4 mg Pantoprazole Sodium (Protonix Inj) 40 mg IVP DAILY [facility] Results - Vital Signs Recent Vital Signs: Last Vital Signs Temp 97.9 F 01/31/18 08:16 Pulse 63 01/31/18 08:16 Resp 20 01/31/18 08:16 BP 165/82 H 01/31/18 08:16 Pulse Ox 97 01/31/18 08:16 - Labs Result Diagrams: 01/31/18 06:40 01/31/18 06:40 Labs: Laboratory Results - last 24 hr 01/30/18 01/30/18 01/31/18 15:28 21:07 05:21 WBC RBC Hgb Hct MCV MCH MCHC RDW Plt Count MPV Neut % (Auto) Lymph % (Auto) [place] % (Auto) Eos % (Auto) Baso % (Auto) Neut # (Auto) Lymph # (Auto) [place] # (Auto) Eos # (Auto) Baso # (Auto) PT INR APTT Sodium Potassium Chloride Carbon Dioxide Anion Gap BUN Creatinine Est GFR ( Amer) Est GFR (Non-Af Amer) POC Glucose (mg/dL) 134 H 156 H 95 Random Glucose Lactic Acid Calcium NT-Pro-B Natriuret Pep Carcinoembryonic Ag 01/31/18 01/31/18 01/31/18 06:40 06:40 06:40 WBC 4.3 L RBC 3.93 Hgb 12.1 Hct 35.5 MCV 90.3 MCH 30.8 MCHC 34.2 RDW 14.9 H Plt Count 158 MPV 8.7 Neut % (Auto) 70.9 Lymph % (Auto) 17.1 L [place] % (Auto) 11.5 H Eos % (Auto) 0.2 Baso % (Auto) 0.3 Neut # (Auto) 3.0 Lymph # (Auto) 0.7 L [place] # (Auto) 0.5 Eos # (Auto) 0.0 Baso # (Auto) 0.0 PT 12.9 INR 1.2 APTT 35.7 Sodium 139 Potassium 3.1 L Chloride 101 Carbon Dioxide 27 Anion Gap 14 BUN 22 H Creatinine 0.6 L Est GFR ( Amer) > 60 Est GFR (Non-Af Amer) > 60 POC Glucose (mg/dL) Random Glucose 92 Lactic Acid Calcium 9.0 NT-Pro-B Natriuret Pep 834 Carcinoembryonic Ag 4.4 H 01/31/18 01/31/18 06:40 10:41 WBC RBC Hgb Hct MCV MCH MCHC RDW Plt Count MPV Neut % (Auto) Lymph % (Auto) [place] % (Auto) Eos % (Auto) Baso % (Auto) Neut # (Auto) Lymph # (Auto) [place] # (Auto) Eos # (Auto) Baso # (Auto) PT INR APTT Sodium Potassium Chloride Carbon Dioxide Anion Gap BUN Creatinine Est GFR ( Amer) Est GFR (Non-Af Amer) POC Glucose (mg/dL) 83 Random Glucose Lactic Acid 1.1 Calcium NT-Pro-B Natriuret Pep Carcinoembryonic Ag Attending/Attestation - Attestation I have personally seen and examined this patient.: Yes I have fully participated in the care of the patient.: Yes I have reviewed all pertinent clinical information: Yes Notes (Text): 01/31/18 13:39 Patient seen this am on GI rounds. This is a 72 yr old F with PMH of colon CA s/ p colectomy, chemo?, H. Pylori infection diagnosed in with last EGD/ colonoscopy in May 2018 with tortourous colon but complete exam, DM and dementia came now admitted with weakness, epigastric pain, intractable nausea and vomiting. CT Abdomen and pelvis revealed proximal small bowel jejuno- jejunal intussusception with markedly dilated stomach and duodenum and a palpable mass in lower abdomen with decreased bowel sounds and NG output of 2.1 lts in past 24 hours. Surgery recs appreciated. Discussed with surgeon Dr Clemons that patient will benefit from double balloon enteroscopy as she recently had regulat luminal exam and hence should be transferred to an academic center. Kepp npo and IVF and replete electrolytes. Rest of care as per surgical service
[2018-01-31] MEDS ORDERED: KCL 40MEQ/NS 1L 1,000 ML IV SCH ×2 (10:15→20:30)
[2018-01-31] MEDS: guaiFENesin 600 mg ER Tab PO SCH ×2 (10:39→21:38)
[2018-01-31] MEDS: Insulin Lispro (humaLOG) 100 Units/ml Inj SC SCH ×3 (10:39→18:08)
[2018-01-31] MEDS: Potassium CL 10 MEQ/50 ML 50 ML IVPB SCH ×4 (11:25→15:51)
[2018-01-31] MEDS ORDERED: Lidocaine 5% Patch TD SCH (12:00)
--- NOTE | 2018-01-31 12:43 | CP.PCM.PN ---
Subjective - Date & Time of Evaluation Date of Evaluation: 01/31/18 Time of Evaluation: 12:41 - Subjective Subjective: General Surgery Dr. Clemons Pt S&E @bedside. pt pleasantly demented and non-verbal. ROS unobtainable. NPO w / NGT on LCS. NGT: 1450cc x24hrs, bilious Objective - Vital Signs/Intake and Output Vital Signs (last 24 hours): Temp Pulse Resp BP Pulse Ox 97.9 F 63 20 165/82 H 97 01/31/18 08:16 01/31/18 08:16 01/31/18 08:16 01/31/18 08:16 01/31/18 08:16 Intake and Output: 01/31/18 01/31/18 06:59 18:59 Intake Total 1200 Balance 1200 - Medications Medications: Current Medications Acetaminophen (Tylenol 325mg Tab) 650 mg PO Q6 PRN PRN Reason: Headache Last Admin: 01/29/18 10:12 Dose: 650 mg Atorvastatin Calcium (Lipitor) 20 mg PO HS [facility] Last Admin: 01/30/18 21:52 Dose: Not Given Dextrose (Dextrose 50% Inj) 0 ml IV STAT PRN; Protocol PRN Reason: Hypoglycemia Protocol Dextrose (Glutose 15) 0 gm PO ONCE PRN; Protocol PRN Reason: Hypoglycemia Protocol Donepezil HCl (Aricept) 5 mg PO HS [facility] Last Admin: 01/30/18 22:00 Dose: Not Given Gabapentin (Neurontin) 100 mg PO TID PRN PRN Reason: Pain, moderate (4-7) Glucagon (Glucagen Diagnostic Kit) 0 mg IM STAT PRN; Protocol PRN Reason: Hypoglycemia Protocol Guaifenesin (Mucinex La) 600 mg PO Q12 [facility] Last Admin: 01/31/18 10:39 Dose: Not Given Heparin Sodium (Porcine) (Heparin) 5,000 units SC Q8 [facility] PRN Reason: Protocol Last Admin: 01/31/18 10:41 Dose: 5,000 units Oral Electrolytes (Kcl 40meq/ 0.9% 1l) 1,000 mls @ 100 mls/hr IV .Q10H [facility] Last Admin: 01/31/18 11:26 Dose: 100 mls/hr Potassium Chloride (Potassium Cl 10meq/50ml Sterile Water) 50 mls @ 50 mls/hr IVPB Q1 [facility] Stop: 01/31/18 14:59 Last Admin: 01/31/18 11:25 Dose: 50 mls/hr Insulin Human Lispro (Humalog) 0 units SC TID [facility] PRN Reason: Protocol Last Admin: 01/31/18 10:39 Dose: Not Given Lidocaine (Lidoderm) 1 ea TD DAILY [facility] Nicotine (Nicoderm Cq) 1 patch TD DAILY [facility] Last Admin: 01/31/18 10:40 Dose: 1 patch Ondansetron HCl (Zofran Inj) 4 mg IVP Q4 PRN PRN Reason: Nausea/Vomiting Last Admin: 01/30/18 15:42 Dose: 4 mg Pantoprazole Sodium (Protonix Inj) 40 mg IVP DAILY [facility] - Labs Labs: 01/31/18 06:40 01/31/18 06:40 PT 12.9 Seconds (9.8-13.1) 01/31/18 06:40 INR 1.2 (0.9-1.2) 01/31/18 06:40 APTT 35.7 Seconds (25.6-37.1) 01/31/18 06:40 - Constitutional Appears: Non-toxic, No Acute Distress, Cachectic - Head Exam Head Exam: NORMAL INSPECTION - Eye Exam Eye Exam: Normal appearance - ENT Exam ENT Exam: Mucous Membranes Moist Additional comments: NGT in place bilious drainage present - Respiratory Exam Respiratory Exam: NORMAL BREATHING PATTERN. absent: Accessory Muscle Use, Respiratory Distress - Cardiovascular Exam Cardiovascular Exam: REGULAR RHYTHM. absent: Bradycardia, Tachycardia - GI/Abdominal Exam GI & Abdominal Exam: Guarding (voluntary guarding epigastric region), Soft, Tenderness. absent: Distended, Firm, Rebound - Extremities Exam Extremities Exam: Normal Inspection - Neurological Exam Neurological Exam: Alert, Altered, Awake - Psychiatric Exam Psychiatric exam: Normal Affect, Normal Mood - Skin Skin Exam: Dry, Intact, Normal Color, Warm Assessment and Plan - Assessment and Plan (Free Text) Assessment: 72 y/o demented F w/ SBO 2/2 intussusception and resolved CAITLYN Plan: - cont NPO/IVF - cont NGT on LCS - strict Is & Os - daily labs - replace electrolytes PRN - no surgical intervention at this time - Pt needs push-enteroscopy for decompression - recommend [facility] vs [facility] Pt seen and discussed w/ Dr. Deonte Latham DO PGY3
--- NOTE | 2018-01-31 13:04 | CP.PCM.PN ---
Subjective - Date & Time of Evaluation Date of Evaluation: 01/31/18 Time of Evaluation: 13:02 - Subjective Subjective: Patient is seen and examined at bedside. Now had NGT in, 1L green bilious drainage observed. She is a poor historian, more alert than yesterday, resting, non-combative. Grant inserted. C/o abdominal pain Objective - Vital Signs/Intake and Output Vital Signs (last 24 hours): Temp Pulse Resp BP Pulse Ox 97.9 F 63 20 165/82 H 97 01/31/18 08:16 01/31/18 08:16 01/31/18 08:16 01/31/18 08:16 01/31/18 08:16 Intake and Output: 01/31/18 01/31/18 06:59 18:59 Intake Total 1200 Balance 1200 - Medications Medications: Current Medications Acetaminophen (Tylenol 325mg Tab) 650 mg PO Q6 PRN PRN Reason: Headache Last Admin: 01/29/18 10:12 Dose: 650 mg Atorvastatin Calcium (Lipitor) 20 mg PO HS [facility] Last Admin: 01/30/18 21:52 Dose: Not Given Dextrose (Dextrose 50% Inj) 0 ml IV STAT PRN; Protocol PRN Reason: Hypoglycemia Protocol Dextrose (Glutose 15) 0 gm PO ONCE PRN; Protocol PRN Reason: Hypoglycemia Protocol Donepezil HCl (Aricept) 5 mg PO HS [facility] Last Admin: 01/30/18 22:00 Dose: Not Given Gabapentin (Neurontin) 100 mg PO TID PRN PRN Reason: Pain, moderate (4-7) Glucagon (Glucagen Diagnostic Kit) 0 mg IM STAT PRN; Protocol PRN Reason: Hypoglycemia Protocol Guaifenesin (Mucinex La) 600 mg PO Q12 [facility] Last Admin: 01/31/18 10:39 Dose: Not Given Heparin Sodium (Porcine) (Heparin) 5,000 units SC Q8 [facility] PRN Reason: Protocol Last Admin: 01/31/18 10:41 Dose: 5,000 units Oral Electrolytes (Kcl 40meq/ 0.9% 1l) 1,000 mls @ 100 mls/hr IV .Q10H [facility] Last Admin: 01/31/18 11:26 Dose: 100 mls/hr Potassium Chloride (Potassium Cl 10meq/50ml Sterile Water) 50 mls @ 50 mls/hr IVPB Q1 [facility] Stop: 01/31/18 14:59 Last Admin: 01/31/18 11:25 Dose: 50 mls/hr Insulin Human Lispro (Humalog) 0 units SC TID [facility] PRN Reason: Protocol Last Admin: 01/31/18 10:39 Dose: Not Given Lidocaine (Lidoderm) 1 ea TD DAILY [facility] Nicotine (Nicoderm Cq) 1 patch TD DAILY [facility] Last Admin: 01/31/18 10:40 Dose: 1 patch Ondansetron HCl (Zofran Inj) 4 mg IVP Q4 PRN PRN Reason: Nausea/Vomiting Last Admin: 01/30/18 15:42 Dose: 4 mg Pantoprazole Sodium (Protonix Inj) 40 mg IVP DAILY [facility] - Labs Labs: 01/31/18 06:40 01/31/18 06:40 PT 12.9 Seconds (9.8-13.1) 01/31/18 06:40 INR 1.2 (0.9-1.2) 01/31/18 06:40 APTT 35.7 Seconds (25.6-37.1) 01/31/18 06:40 - Constitutional Appears: No Acute Distress, Confused - Cardiovascular Exam Cardiovascular Exam: RRR, +S1, +S2 - GI/Abdominal Exam GI & Abdominal Exam: Soft, Tenderness, Normal Bowel Sounds - Extremities Exam Extremities Exam: absent: Pedal Edema - Neurological Exam Neurological Exam: Alert, Awake - Skin Skin Exam: Dry, Intact, Warm Assessment and Plan - Assessment and Plan (Free Text) Assessment: 72 y/o F with PMHx of HTN, NIDDM, HLD, and dementia admitted for acute kidney injury and intussusception. Plan: 1) Intussusception -abdominal pain -jejuno-jejunal intussusception w/ marked dilation of duodenum and stomach seen on CT abd/pelvis -KUB: no obstruction, retained colonic stool. -NGT to decompress stomach -poor surgical candidate per surgery -Lidoderm patches for pain -CEA mildly elevated 4.4 -possible Balloon enteroscopy -GI follow, appreciate recs 2) Acute Kidney Injury -resolved -hydrating w/ IV NS 100mL/hr -most likely 2/2 Prerenal azothemia 2/2 dehydration from poor oral intake in a setting of dementia, but Viral vs Bacteria infection should be r/o -on lisinopril-HCTC 20-25 mg QD at home -BUN/Cr on admission 64/1.8. Normal creatinine 0.9, and GFR>60 on prior test dated 06/16/17 -UA, Urine lytes, and urine culture ordered - Blood Cx negative -EKG sinus rhythm, some PACs, otherwise normal -follow I/Os 3)Headache -likely 2/2 dehydration -Head CT scan 01/29 no acute changes -No visual changes/eye pain 4) NIDDM -uncontrolled, HgbA1C 01/29/18= 7.1 -hyperglycemia on admission in a setting of suspected dehydration; no ketonurea -will hold home Janumet ( sitaglitin/metformin) for now because impaired real function -start Insulin lispro SC by sliding scale low coverage TID -accucheck ACHS -hypoglycemic protocol 5) HTN -will hold BP meds for now due to BP close to low normal -adjust meds as needed based on her age and BP goals -on Nifedipine ER 90 mg daily at home -on lisinopril-Hctz 20-25 daily at home 6) Dementia -confused but oriented to self and responds when prompted -c/w home aricept 5 mg qd -normal TSH on 08/18/16 -normal Vit B12 on 08/18/16 7. Hypokalemia -K+ 3.1 today -Urine K+ 100.2 -replacing with potassium chloride IV -will check mag, phos, and Ca+ -f/u BMP 8. Diet -NPO 9. DVT prophylaxis SCDs Heparin SC
[2018-01-31] MEDS ORDERED: Chlorhexidine Gluconate 1 APPL/PKT TP ONE ×2 (14:06→16:47)
--- NOTE | 2018-01-31 15:25 | RAD ---
Date of service: 01/31/2018 PROCEDURE: CHEST RADIOGRAPH, 1 VIEW HISTORY: NG 5ube placement COMPARISON: 01/29/2018 FINDINGS: LUNGS: Bilateral hyperaeration- background COPD inferred. No interval consolidation or gross airspace opacity perceived. PLEURA: No pneumothorax or pleural fluid seen. CARDIOVASCULAR: Minimal cardiomegaly. OSSEOUS STRUCTURES: Bilateral shoulder arthrosis. Minimal S shaped convexity of the thoracic spine VISUALIZED UPPER ABDOMEN: Enteric tube inserted - courses over stomach- tip beyond inferior edge of the image. OTHER FINDINGS: None. IMPRESSION: NG tube coursing at least over stomach. Tip beyond inferior edge of this image Bilateral hyperaeration with probable small cystic emphysematous changes. Background COPD inferred.
[2018-01-31] MEDS ORDERED: Sodium Chloride 0.9% 1,000 ML IV SCH (21:00)
[2018-01-31] MEDS: Dextrose 5%/0.9% NS 1,000 ML IV SCH (22:08)
[2018-02-01] MEDS: Dextrose 5%/0.9% NS 1,000 ML IV SCH ×4 (04:31→17:30)
--- NOTE | 2018-02-01 07:21 | CP.PCM.PN ---
<Jaqui Weiss - Last Filed: 02/01/18 07:52> Subjective - Date & Time of Evaluation Date of Evaluation: 02/01/18 Time of Evaluation: 07:17 - Subjective Subjective: General surgery progress note for Dr. Keena Weiss, PGY-2 Pt S & E at bedside at 0650 Pt reports abdominal pain resolving. Was agitated overnight, removed NGT for 2nd time. Had to be placed on a 1:1 and given Haldol. No other acute events overnight. Per nursing, pt in talks to be tranferred to [facility]. Pt currently refusing physical exam Objective - Vital Signs/Intake and Output Vital Signs (last 24 hours): Temp Pulse Resp BP Pulse Ox 97.9 F 63 20 167/83 H 99 02/01/18 01:00 02/01/18 01:00 02/01/18 01:00 02/01/18 01:00 02/01/18 01:00 Intake and Output: 02/01/18 02/01/18 06:59 18:59 Intake Total 1400 Output Total 3350 Balance -1950 - Medications Medications: Current Medications Acetaminophen (Tylenol 325mg Tab) 650 mg PO Q6 PRN PRN Reason: Headache Last Admin: 01/29/18 10:12 Dose: 650 mg Atorvastatin Calcium (Lipitor) 20 mg PO HS [facility] Last Admin: 01/31/18 21:39 Dose: Not Given Dextrose (Dextrose 50% Inj) 0 ml IV STAT PRN; Protocol PRN Reason: Hypoglycemia Protocol Dextrose (Glutose 15) 0 gm PO ONCE PRN; Protocol PRN Reason: Hypoglycemia Protocol Donepezil HCl (Aricept) 5 mg PO HS [facility] Last Admin: 01/31/18 21:39 Dose: Not Given Gabapentin (Neurontin) 100 mg PO TID PRN PRN Reason: Pain, moderate (4-7) Glucagon (Glucagen Diagnostic Kit) 0 mg IM STAT PRN; Protocol PRN Reason: Hypoglycemia Protocol Guaifenesin (Mucinex La) 600 mg PO Q12 [facility] Last Admin: 01/31/18 21:38 Dose: Not Given Heparin Sodium (Porcine) (Heparin) 5,000 units SC Q8 [facility] PRN Reason: Protocol Last Admin: 02/01/18 00:09 Dose: 5,000 units Dextrose/Sodium Chloride (Dextrose 5%/0.9% Ns 1000 Ml) 1,000 mls @ 100 mls/hr IV .Q10H [facility] Stop: 02/01/18 21:43 Insulin Human Lispro (Humalog) 0 units SC TID [facility] PRN Reason: Protocol Last Admin: 01/31/18 18:08 Dose: Not Given Lidocaine (Lidoderm) 1 ea TD DAILY [facility] Nicotine (Nicoderm Cq) 1 patch TD DAILY [facility] Last Admin: 01/31/18 10:40 Dose: 1 patch Ondansetron HCl (Zofran Inj) 4 mg IVP Q4 PRN PRN Reason: Nausea/Vomiting Last Admin: 01/30/18 15:42 Dose: 4 mg Pantoprazole Sodium (Protonix Inj) 40 mg IVP DAILY [facility] - Labs Labs: 01/31/18 06:40 01/31/18 06:40 PT 12.9 Seconds (9.8-13.1) 01/31/18 06:40 INR 1.2 (0.9-1.2) 01/31/18 06:40 APTT 35.7 Seconds (25.6-37.1) 01/31/18 06:40 - Constitutional Appears: Non-toxic, No Acute Distress - Head Exam Head Exam: ATRAUMATIC, NORMAL INSPECTION, NORMOCEPHALIC - Eye Exam Eye Exam: EOMI, Normal appearance - ENT Exam ENT Exam: Mucous Membranes Moist, Normal Exam - Neck Exam Neck Exam: Full ROM - Respiratory Exam Respiratory Exam: NORMAL BREATHING PATTERN - GI/Abdominal Exam Additional comments: Refused abdominal physical exam - Neurological Exam Neurological Exam: Awake - Psychiatric Exam Psychiatric exam: Normal Affect, Normal Mood - Skin Skin Exam: Dry, Intact, Normal Color, Warm Assessment and Plan - Assessment and Plan (Free Text) Assessment: 85F w/intussussception Plan: Decrease IVF rate Pain control NPO Maintain NGT on wall suction No surgical intervention at this time Ok to transfer to [facility] for GI reduction of intussusceptum Further mgmt as per primary care team Please re-consult if needed Will TEVIN attending Isela, PGY-2 <Saajn Clemons - Last Filed: 02/02/18 16:43> Objective - Vital Signs/Intake and Output Vital Signs (last 24 hours): Temp Pulse Resp BP Pulse Ox 98.8 F 92 H 20 143/66 98 02/02/18 08:23 02/02/18 08:23 02/02/18 08:23 02/02/18 08:23 02/02/18 08:23 - Labs Labs: 02/01/18 08:30 02/02/18 05:55 PT 12.9 Seconds (9.8-13.1) 01/31/18 06:40 INR 1.2 (0.9-1.2) 01/31/18 06:40 APTT 35.7 Seconds (25.6-37.1) 01/31/18 06:40 Assessment and Plan - Assessment and Plan (Free Text) Plan: I personally saw and examined the patient with the resident staff and agree with the above assessment and plan. NGT decompression and patient improved, no acute abdominal changes or surgical needs currently. Ok to transfer to [facility]iary center for higher level of care for enteroscopy. Discussed at length with team, Dr. Hewitt, Dr. Rodarte.
--- NOTE | 2018-02-01 08:26 | CP.PCM.PN ---
<Jad Clemons - Last Filed: 02/01/18 10:35> Subjective - Date & Time of Evaluation Date of Evaluation: 02/01/18 Time of Evaluation: 07:00 - Subjective Subjective: PGY5 GI GI Follow-up Pt seen and examined bedside NG pulled yesterday Oupt decreasing denies any pain or nausea ROS: 12 point ROS conducted, neg other than above Objective - Vital Signs/Intake and Output Vital Signs (last 24 hours): Temp Pulse Resp BP Pulse Ox 97.9 F 63 20 167/83 H 99 02/01/18 01:00 02/01/18 01:00 02/01/18 01:00 02/01/18 01:00 02/01/18 01:00 Intake and Output: 02/01/18 02/01/18 06:59 18:59 Intake Total 1400 Output Total 3350 Balance -1950 - Medications Medications: Current Medications Acetaminophen (Tylenol 325mg Tab) 650 mg PO Q6 PRN PRN Reason: Headache Last Admin: 01/29/18 10:12 Dose: 650 mg Atorvastatin Calcium (Lipitor) 20 mg PO HS [facility] Last Admin: 01/31/18 21:39 Dose: Not Given Dextrose (Dextrose 50% Inj) 0 ml IV STAT PRN; Protocol PRN Reason: Hypoglycemia Protocol Dextrose (Glutose 15) 0 gm PO ONCE PRN; Protocol PRN Reason: Hypoglycemia Protocol Donepezil HCl (Aricept) 5 mg PO HS [facility] Last Admin: 01/31/18 21:39 Dose: Not Given Gabapentin (Neurontin) 100 mg PO TID PRN PRN Reason: Pain, moderate (4-7) Glucagon (Glucagen Diagnostic Kit) 0 mg IM STAT PRN; Protocol PRN Reason: Hypoglycemia Protocol Guaifenesin (Mucinex La) 600 mg PO Q12 [facility] Last Admin: 01/31/18 21:38 Dose: Not Given Heparin Sodium (Porcine) (Heparin) 5,000 units SC Q8 [facility] PRN Reason: Protocol Last Admin: 02/01/18 00:09 Dose: 5,000 units Dextrose/Sodium Chloride (Dextrose 5%/0.9% Ns 1000 Ml) 1,000 mls @ 100 mls/hr IV .Q10H [facility] Stop: 02/01/18 21:43 Insulin Human Lispro (Humalog) 0 units SC TID [facility] PRN Reason: Protocol Last Admin: 01/31/18 18:08 Dose: Not Given Lidocaine (Lidoderm) 1 ea TD DAILY [facility] Nicotine (Nicoderm Cq) 1 patch TD DAILY [facility] Last Admin: 01/31/18 10:40 Dose: 1 patch Ondansetron HCl (Zofran Inj) 4 mg IVP Q4 PRN PRN Reason: Nausea/Vomiting Last Admin: 01/30/18 15:42 Dose: 4 mg Pantoprazole Sodium (Protonix Inj) 40 mg IVP DAILY [facility] - Labs Labs: 01/31/18 06:40 01/31/18 06:40 PT 12.9 Seconds (9.8-13.1) 01/31/18 06:40 INR 1.2 (0.9-1.2) 01/31/18 06:40 APTT 35.7 Seconds (25.6-37.1) 01/31/18 06:40 - Constitutional Appears: Well, No Acute Distress, Confused, Chronically Ill - Head Exam Head Exam: ATRAUMATIC, NORMOCEPHALIC - Eye Exam Eye Exam: Normal appearance - ENT Exam ENT Exam: Mucous Membranes Moist, Normal Exam Additional comments: NG in place - Respiratory Exam Respiratory Exam: Clear to Ausculation Bilateral, NORMAL BREATHING PATTERN. absent: Rales, Rhonchi, Wheezes, Respiratory Distress - Cardiovascular Exam Cardiovascular Exam: REGULAR RHYTHM, +S1, +S2 - GI/Abdominal Exam GI & Abdominal Exam: Soft, Normal Bowel Sounds. absent: Distended, Firm, Guarding, Rigid, Tenderness, Hyperactive Bowel Sounds, Organomegaly, Rebound - Extremities Exam Extremities Exam: absent: Joint Swelling, Pedal Edema - Neurological Exam Neurological Exam: Alert, Altered Additional comments: not oriented to place and time - Psychiatric Exam Psychiatric exam: Normal Affect, Normal Mood - Skin Skin Exam: Dry, Intact, Normal Color, Warm Assessment and Plan - Assessment and Plan (Free Text) Assessment: Debora Villanueva is a 72 F w PMH of colon CA s/p colectomy, chemo?, H. Pylori , DM and dementia came with weakness, epigastric pain, intractable nausea and vomiting.CT Abd/Pelv revealed proximal small bowel jejuno-jejunal intussusception with markedly dilated stomach and duodenum jejuno-jejunal intussusception SBO 2/2 above intractable nausea and vomiting 2/2 above Weightloss Hx. of h. pylori Plan Not a surgical cannidate as per Surgery Keep NPO agree with NG tube NG care as per surgery since the location of the intussusception is in the jejuem, recommend balloon enteroscopy at [facility] or [facility]. continue IV fluids spoke with Primary team, they will initiate a medicine to medicine transfer for balloon enteroscopy no intervention planned by us at this time, will signoff will D/W Dr. Hewitt <Brandy Hewitt - Last Filed: 02/01/18 12:55> Objective - Vital Signs/Intake and Output Vital Signs (last 24 hours): Temp Pulse Resp BP Pulse Ox 98.1 F 63 20 153/69 H 99 02/01/18 08:56 02/01/18 08:56 02/01/18 08:56 02/01/18 08:56 02/01/18 08:56 Intake and Output: 02/01/18 02/01/18 06:59 18:59 Intake Total 1400 Output Total 3350 Balance -1950 - Medications Medications: Current Medications Acetaminophen (Tylenol 325mg Tab) 650 mg PO Q6 PRN PRN Reason: Headache Last Admin: 01/29/18 10:12 Dose: 650 mg Acetaminophen (Tylenol 650 Mg Supp) 650 mg NC Q6 PRN PRN Reason: Fever >100.4 F Stop: 02/08/18 08:00 Atorvastatin Calcium (Lipitor) 20 mg PO HS [facility] Last Admin: 01/31/18 21:39 Dose: Not Given Dextrose (Dextrose 50% Inj) 0 ml IV STAT PRN; Protocol PRN Reason: Hypoglycemia Protocol Dextrose (Glutose 15) 0 gm PO ONCE PRN; Protocol PRN Reason: Hypoglycemia Protocol Donepezil HCl (Aricept) 5 mg PO HS [facility] Last Admin: 01/31/18 21:39 Dose: Not Given Gabapentin (Neurontin) 100 mg PO TID PRN PRN Reason: Pain, moderate (4-7) Glucagon (Glucagen Diagnostic Kit) 0 mg IM STAT PRN; Protocol PRN Reason: Hypoglycemia Protocol Guaifenesin (Mucinex La) 600 mg PO Q12 [facility] Last Admin: 02/01/18 09:39 Dose: Not Given Heparin Sodium (Porcine) (Heparin) 5,000 units SC Q8 [facility] PRN Reason: Protocol Last Admin: 02/01/18 09:37 Dose: 5,000 units Dextrose/Sodium Chloride (Dextrose 5%/0.9% Ns 1000 Ml) 1,000 mls @ 100 mls/hr IV .Q10H [facility] Stop: 02/01/18 21:43 Last Admin: 02/01/18 09:36 Dose: 100 mls/hr Potassium Phosphate 9 mmole/ (Sodium Chloride) 253 mls @ 65 mls/hr IV ONCE ONE Stop: 02/01/18 15:30 Last Admin: 02/01/18 12:13 Dose: 65 mls/hr Insulin Human Lispro (Humalog) 0 units SC TID [facility] PRN Reason: Protocol Last Admin: 02/01/18 12:14 Dose: Not Given Lidocaine (Lidoderm) 1 ea TD DAILY [facility] Last Admin: 02/01/18 09:39 Dose: 1 ea Nicotine (Nicoderm Cq) 1 patch TD DAILY [facility] Last Admin: 02/01/18 09:40 Dose: 1 patch Ondansetron HCl (Zofran Inj) 4 mg IVP Q4 PRN PRN Reason: Nausea/Vomiting Last Admin: 01/30/18 15:42 Dose: 4 mg Pantoprazole Sodium (Protonix Inj) 40 mg IVP DAILY [facility] Last Admin: 02/01/18 09:40 Dose: 40 mg - Labs Labs: 02/01/18 08:30 02/01/18 08:30 PT 12.9 Seconds (9.8-13.1) 01/31/18 06:40 INR 1.2 (0.9-1.2) 01/31/18 06:40 APTT 35.7 Seconds (25.6-37.1) 01/31/18 06:40 Attending/Attestation - Attestation I have personally seen and examined this patient.: Yes I have fully participated in the care of the patient.: Yes I have reviewed all pertinent clinical information, including history, physical exam and plan: Yes Notes (Text): 02/01/18 12:53 Patient seen this am on GI rounds. This is a 72 yr old F with PMH of colon CA s/ p colectomy, chemo?, H. Pylori infection diagnosed in with last EGD/ colonoscopy in May 2018 with tortourous colon but complete exam, DM and dementia came now admitted with weakness, epigastric pain, intractable nausea and vomiting. CT Abdomen and pelvis revealed proximal small bowel jejuno- jejunal intussusception with markedly dilated stomach and duodenum and a palpable mass in lower abdomen with decreased bowel sounds and NG output of 2 lts in past 24 hours. Surgery recs appreciated. Discussed with surgeon Dr Clemons that patient will benefit from double balloon enteroscopy as she recently had regular luminal exam and hence should be transferred to an academic center. Keep npo and IVF and replete electrolytes. Rest of care as per surgical service
[2018-02-01 08:46] LABS: BASO % 0.4 % (0.0-2.0); EOS % 0.3 % (0.0-4.0); HEMOGLOBIN 12.6 g/dL (12.0-16.0); LYMPH # 0.7 K/uL (1.0-4.3); LYMPH % 14.5 % (20.0-40.0); MEAN CELL VOLUME 89.7 fl (81.0-99.0); MEAN CORPUSCULAR HEMOGLOBIN 30.9 pg (27.0-31.0); MEAN CORPUSCULAR HGB CONC 34.4 g/dL (33.0-37.0); MEAN PLATELET VOLUME 8.6 fl (7.2-11.7); MONO # 0.5 K/uL (0.0-0.8); MONO % 10.4 % (0.0-10.0); NEUT # 3.8 K/uL (1.8-7.0); NEUT % 74.4 % (50.0-75.0); NRBC % 0.1 % (0.0-0.0); RBC 4.08 Mil/uL (3.80-5.20); RED CELL DISTRIBUTION WIDTH 14.6 % (11.5-14.5)
[2018-02-01 09:00] LABS: BLOOD UREA NITROGEN 10 mg/dl (7-17); CALCIUM 9.2 mg/dL (8.4-10.2); GFR AFRICAN-AMERICAN > 60; GFR NON-AFRICAN AMERICAN > 60
[2018-02-01] MEDS: Insulin Lispro (humaLOG) 100 Units/ml Inj SC SCH ×3 (09:38→16:48)
[2018-02-01] MEDS: Lidocaine 5% Patch TD SCH (09:39)
[2018-02-01] MEDS: guaiFENesin 600 mg ER Tab PO SCH (09:39)
[2018-02-01] MEDS ORDERED: Magnesium Sulfate 2 gm/50 ml 2 GM/50 ML BAG IVPB ONE (11:23)
[2018-02-01] MEDS ORDERED: SODIUM CHLORIDE IV ONE (11:37)
[2018-02-01] MEDS ORDERED: POTASSIUM PHOSPHATE IV ONE (11:37)
--- NOTE | 2018-02-01 11:51 | CP.PCM.PN ---
Subjective - Date & Time of Evaluation Date of Evaluation: 02/01/18 Time of Evaluation: 11:49 - Subjective Subjective: Patient is seen and examined at bedside. Laying down comfortably w/ NGT in, green bilious drainage observed. She is a poor historian, alert, resting, non- combative. Grant inserted. Objective - Vital Signs/Intake and Output Vital Signs (last 24 hours): Temp Pulse Resp BP Pulse Ox 98.1 F 63 20 153/69 H 99 02/01/18 08:56 02/01/18 08:56 02/01/18 08:56 02/01/18 08:56 02/01/18 08:56 Intake and Output: 02/01/18 02/01/18 06:59 18:59 Intake Total 1400 Output Total 3350 Balance -1950 - Medications Medications: Current Medications Acetaminophen (Tylenol 325mg Tab) 650 mg PO Q6 PRN PRN Reason: Headache Last Admin: 01/29/18 10:12 Dose: 650 mg Acetaminophen (Tylenol 650 Mg Supp) 650 mg CA Q6 PRN PRN Reason: Fever >100.4 F Stop: 02/08/18 08:00 Atorvastatin Calcium (Lipitor) 20 mg PO HS [facility] Last Admin: 01/31/18 21:39 Dose: Not Given Dextrose (Dextrose 50% Inj) 0 ml IV STAT PRN; Protocol PRN Reason: Hypoglycemia Protocol Dextrose (Glutose 15) 0 gm PO ONCE PRN; Protocol PRN Reason: Hypoglycemia Protocol Donepezil HCl (Aricept) 5 mg PO HS [facility] Last Admin: 01/31/18 21:39 Dose: Not Given Gabapentin (Neurontin) 100 mg PO TID PRN PRN Reason: Pain, moderate (4-7) Glucagon (Glucagen Diagnostic Kit) 0 mg IM STAT PRN; Protocol PRN Reason: Hypoglycemia Protocol Guaifenesin (Mucinex La) 600 mg PO Q12 [facility] Last Admin: 02/01/18 09:39 Dose: Not Given Heparin Sodium (Porcine) (Heparin) 5,000 units SC Q8 [facility] PRN Reason: Protocol Last Admin: 02/01/18 09:37 Dose: 5,000 units Dextrose/Sodium Chloride (Dextrose 5%/0.9% Ns 1000 Ml) 1,000 mls @ 100 mls/hr IV .Q10H [facility] Stop: 02/01/18 21:43 Last Admin: 02/01/18 09:36 Dose: 100 mls/hr Magnesium Sulfate (Magnesium Sulfate 2 Gm/50 Ml Water) 2 gm in 50 mls @ 50 mls/ hr IVPB ONCE ONE PRN Reason: 2 GM/HR Stop: 02/01/18 12:22 Potassium Phosphate 9 mmole/ (Sodium Chloride) 253 mls @ 65 mls/hr IV ONCE ONE Stop: 02/01/18 15:30 Insulin Human Lispro (Humalog) 0 units SC TID [facility] PRN Reason: Protocol Last Admin: 02/01/18 09:38 Dose: Not Given Lidocaine (Lidoderm) 1 ea TD DAILY [facility] Last Admin: 02/01/18 09:39 Dose: 1 ea Nicotine (Nicoderm Cq) 1 patch TD DAILY [facility] Last Admin: 02/01/18 09:40 Dose: 1 patch Ondansetron HCl (Zofran Inj) 4 mg IVP Q4 PRN PRN Reason: Nausea/Vomiting Last Admin: 01/30/18 15:42 Dose: 4 mg Pantoprazole Sodium (Protonix Inj) 40 mg IVP DAILY [facility] Last Admin: 02/01/18 09:40 Dose: 40 mg - Labs Labs: 02/01/18 08:30 02/01/18 08:30 PT 12.9 Seconds (9.8-13.1) 01/31/18 06:40 INR 1.2 (0.9-1.2) 01/31/18 06:40 APTT 35.7 Seconds (25.6-37.1) 01/31/18 06:40 - Constitutional Appears: No Acute Distress, Confused - ENT Exam ENT Exam: Mucous Membranes Dry - Respiratory Exam Respiratory Exam: Clear to Ausculation Bilateral, NORMAL BREATHING PATTERN - Cardiovascular Exam Cardiovascular Exam: REGULAR RHYTHM, RRR, +S1, +S2 - GI/Abdominal Exam GI & Abdominal Exam: Soft. absent: Tenderness - Extremities Exam Extremities Exam: absent: Pedal Edema, Tenderness - Neurological Exam Neurological Exam: Alert, Awake - Skin Skin Exam: Dry, Intact, Warm Assessment and Plan - Assessment and Plan (Free Text) Assessment: 72 y/o F with PMHx of HTN, NIDDM, HLD, and dementia admitted for acute kidney injury and intussusception. Plan: 1) Intussusception -abdominal pain -jejuno-jejunal intussusception w/ marked dilation of duodenum and stomach seen on CT abd/pelvis -KUB: no obstruction, retained colonic stool. -NGT to decompress stomach 2L output -poor surgical candidate per surgery -Lidoderm patches for pain -CEA mildly elevated 4.4 -Balloon enteroscopy recommended -GI follow, appreciate recs 2) Acute Kidney Injury -resolved -hydrating w/ IV NS 100mL/hr -most likely 2/2 Prerenal azothemia 2/2 dehydration from poor oral intake in a setting of dementia, but Viral vs Bacteria infection should be r/o -on lisinopril-HCTC 20-25 mg QD at home -BUN/Cr on admission 64/1.8. Normal creatinine 0.9, and GFR>60 on prior test dated 06/16/17 -UA, Urine lytes, and urine culture ordered - Blood Cx negative -EKG sinus rhythm, some PACs, otherwise normal -follow I/Os 3)Headache -likely 2/2 dehydration -Head CT scan 01/29 no acute changes -No visual changes/eye pain 4) NIDDM -uncontrolled, HgbA1C 01/29/18= 7.1 -hyperglycemia on admission in a setting of suspected dehydration; no ketonurea -will hold home Janumet ( sitaglitin/metformin) for now because impaired real function -start Insulin lispro SC by sliding scale low coverage TID -accucheck ACHS -hypoglycemic protocol 5) HTN -will hold BP meds for now due to BP close to low normal -adjust meds as needed based on her age and BP goals -on Nifedipine ER 90 mg daily at home -on lisinopril-Hctz 20-25 daily at home -monitoring 6) Dementia -confused but oriented to self and responds when prompted -bouts of agitation last night -s/p 0.5mg haledol -1:1 restraints -c/w home aricept 5 mg qd -normal TSH on 08/18/16 -normal Vit B12 on 08/18/16 7. Hypokalemia -K+ 3.0 today -likely 2/2 hypomagnesemia -Urine K+ 100.2 -replaced with potassium chloride IV -replacing w/ potassium phosphate -f/u BMP 8)Hypomagensemia -mg+ 1.5 -replacing w/ mag sulfate 2gm 9)Hypophosphetemia -Phos 0.9 -replacing w/ potassium phosphate 8. Diet -NPO -holding all PO meds 9. DVT prophylaxis -SCDs -Heparin SC
[2018-02-01] MEDS ORDERED: Vitamin A/D oint 60G TP PRN (18:08)
[2018-02-02 06:54] LABS: BLOOD UREA NITROGEN 12 mg/dl (7-17); CALCIUM 8.8 mg/dL (8.4-10.2); GFR AFRICAN-AMERICAN > 60; GFR NON-AFRICAN AMERICAN > 60
[2018-02-02] MEDS ORDERED: Lactated Ringer's 1,000 ML IV SCH ×2 (07:30)
[2018-02-02] MEDS ORDERED: Potassium Phosphate 30 MMOLE in Sodium Chloride 0.9% 250 ML IV ONE (07:30)
--- NOTE | 2018-02-02 08:22 | CP.PCM.PN ---
Subjective - Date & Time of Evaluation Date of Evaluation: 02/02/18 Time of Evaluation: 08:19 - Subjective Subjective: General Surgery - Dr. Clemons Pt seen and examined. On morning rounds pt found to have air filter of NGT tied off with only 50cc output overnight. Filter was untied and flushed with air, NGT reconnected and additional 1L of dark bilious drainage suctioned. Pt denies any abdominal pain currently, she states she feels better. She denies any nausea/vomiting/fevers/chills. Aware that she is waiting for transfer to [facility]. Objective - Vital Signs/Intake and Output Vital Signs (last 24 hours): Temp Pulse Resp BP Pulse Ox 97.6 F 60 20 154/79 H 95 02/01/18 17:00 02/01/18 17:00 02/01/18 17:00 02/01/18 17:00 02/01/18 17:00 - Medications Medications: Current Medications Acetaminophen (Tylenol 325mg Tab) 650 mg PO Q6 PRN PRN Reason: Headache Last Admin: 01/29/18 10:12 Dose: 650 mg Acetaminophen (Tylenol 650 Mg Supp) 650 mg VA Q6 PRN PRN Reason: Fever >100.4 F Stop: 02/08/18 08:00 Atorvastatin Calcium (Lipitor) 20 mg PO HS [facility] Last Admin: 01/31/18 21:39 Dose: Not Given Dextrose (Dextrose 50% Inj) 0 ml IV STAT PRN; Protocol PRN Reason: Hypoglycemia Protocol Dextrose (Glutose 15) 0 gm PO ONCE PRN; Protocol PRN Reason: Hypoglycemia Protocol Donepezil HCl (Aricept) 5 mg PO HS [facility] Last Admin: 01/31/18 21:39 Dose: Not Given Gabapentin (Neurontin) 100 mg PO TID PRN PRN Reason: Pain, moderate (4-7) Glucagon (Glucagen Diagnostic Kit) 0 mg IM STAT PRN; Protocol PRN Reason: Hypoglycemia Protocol Guaifenesin (Mucinex La) 600 mg PO Q12 [facility] Last Admin: 02/01/18 09:39 Dose: Not Given Heparin Sodium (Porcine) (Heparin) 5,000 units SC Q8 [facility] PRN Reason: Protocol Last Admin: 02/02/18 00:02 Dose: 5,000 units Potassium Phosphate 30 mmole/ (Sodium Chloride) 260 mls @ 65 mls/hr IV ONCE ONE Stop: 02/02/18 11:29 Lactated Ringer's (Lactated Ringer's) 1,000 mls @ 100 mls/hr IV .Q10H [facility] Insulin Human Lispro (Humalog) 0 units SC TID [facility] PRN Reason: Protocol Last Admin: 02/01/18 16:48 Dose: Not Given Lidocaine (Lidoderm) 1 ea TD DAILY [facility] Last Admin: 02/01/18 09:39 Dose: 1 ea Nicotine (Nicoderm Cq) 1 patch TD DAILY [facility] Last Admin: 02/01/18 09:40 Dose: 1 patch Ondansetron HCl (Zofran Inj) 4 mg IVP Q4 PRN PRN Reason: Nausea/Vomiting Last Admin: 01/30/18 15:42 Dose: 4 mg Pantoprazole Sodium (Protonix Inj) 40 mg IVP DAILY [facility] Last Admin: 02/01/18 09:40 Dose: 40 mg Vitamin A (Vitamin A&D) 1 applic TP Q8 PRN PRN Reason: dry skin - Labs Labs: 02/01/18 08:30 02/02/18 05:55 PT 12.9 Seconds (9.8-13.1) 01/31/18 06:40 INR 1.2 (0.9-1.2) 01/31/18 06:40 APTT 35.7 Seconds (25.6-37.1) 01/31/18 06:40 - Constitutional Appears: No Acute Distress - Head Exam Head Exam: ATRAUMATIC, NORMAL INSPECTION, NORMOCEPHALIC - Eye Exam Eye Exam: Normal appearance - Respiratory Exam Respiratory Exam: NORMAL BREATHING PATTERN. absent: Respiratory Distress - Cardiovascular Exam Cardiovascular Exam: REGULAR RHYTHM - GI/Abdominal Exam GI & Abdominal Exam: Soft, Mass (palpable mass R mid abdomen). absent: Distended, Firm, Guarding, Rigid, Tenderness, Rebound - Neurological Exam Neurological Exam: Alert, Oriented x3 - Psychiatric Exam Psychiatric exam: Normal Affect, Normal Mood - Skin Skin Exam: Dry, Intact Assessment and Plan - Assessment and Plan (Free Text) Assessment: 85F w/ intussussception Plan: -Continue NPO, NGT to low wall suction, monitor output -IVF: LR@100 -Electrolyte repletion -Pain control prn -No surgical intervention at this time -Awaiting transfer to [facility] for GI reduction of intussusception -Will continue to follow while in house DW Dr Deonte Solis PGY4
[2018-02-02 08:25] VITALS: BP 143/66; PULSE 92; TEMP 98.8; O2SAT 98
[2018-02-02] MEDS: Lidocaine 5% Patch TD SCH (08:50)
[2018-02-02] MEDS: Insulin Lispro (humaLOG) 100 Units/ml Inj SC SCH ×2 (09:05→13:03)
--- NOTE | 2018-02-02 09:05 | CP.PCM.PN ---
<Jad Clemons - Last Filed: 02/02/18 10:53> Subjective - Date & Time of Evaluation Date of Evaluation: 02/02/18 Time of Evaluation: 08:00 - Subjective Subjective: PGY5 GI Follow-up Pt seen and examined bedside denies any abd pain no overnight events 1L outpt from NG ROS: 12 point ROS conducted, neg other than above Objective - Vital Signs/Intake and Output Vital Signs (last 24 hours): Temp Pulse Resp BP Pulse Ox 98.8 F 92 H 20 143/66 98 02/02/18 08:23 02/02/18 08:23 02/02/18 08:23 02/02/18 08:23 02/02/18 08:23 - Medications Medications: Current Medications Acetaminophen (Tylenol 325mg Tab) 650 mg PO Q6 PRN PRN Reason: Headache Last Admin: 01/29/18 10:12 Dose: 650 mg Acetaminophen (Tylenol 650 Mg Supp) 650 mg HI Q6 PRN PRN Reason: Fever >100.4 F Stop: 02/08/18 08:00 Atorvastatin Calcium (Lipitor) 20 mg PO HS [facility] Last Admin: 01/31/18 21:39 Dose: Not Given Dextrose (Dextrose 50% Inj) 0 ml IV STAT PRN; Protocol PRN Reason: Hypoglycemia Protocol Dextrose (Glutose 15) 0 gm PO ONCE PRN; Protocol PRN Reason: Hypoglycemia Protocol Donepezil HCl (Aricept) 5 mg PO HS [facility] Last Admin: 01/31/18 21:39 Dose: Not Given Gabapentin (Neurontin) 100 mg PO TID PRN PRN Reason: Pain, moderate (4-7) Glucagon (Glucagen Diagnostic Kit) 0 mg IM STAT PRN; Protocol PRN Reason: Hypoglycemia Protocol Guaifenesin (Mucinex La) 600 mg PO Q12 [facility] Last Admin: 02/01/18 09:39 Dose: Not Given Heparin Sodium (Porcine) (Heparin) 5,000 units SC Q8 [facility] PRN Reason: Protocol Last Admin: 02/02/18 08:49 Dose: 5,000 units Potassium Phosphate 30 mmole/ (Sodium Chloride) 260 mls @ 65 mls/hr IV ONCE ONE Stop: 02/02/18 11:29 Last Admin: 02/02/18 09:02 Dose: 65 mls/hr Lactated Ringer's (Lactated Ringer's) 1,000 mls @ 100 mls/hr IV .Q10H [facility] Last Admin: 02/02/18 08:47 Dose: 100 mls/hr Insulin Human Lispro (Humalog) 0 units SC TID [facility] PRN Reason: Protocol Last Admin: 02/01/18 16:48 Dose: Not Given Lidocaine (Lidoderm) 1 ea TD DAILY [facility] Last Admin: 02/02/18 08:50 Dose: 1 ea Nicotine (Nicoderm Cq) 1 patch TD DAILY [facility] Last Admin: 02/02/18 08:49 Dose: 1 patch Ondansetron HCl (Zofran Inj) 4 mg IVP Q4 PRN PRN Reason: Nausea/Vomiting Last Admin: 01/30/18 15:42 Dose: 4 mg Pantoprazole Sodium (Protonix Inj) 40 mg IVP DAILY [facility] Last Admin: 02/02/18 08:48 Dose: 40 mg Vitamin A (Vitamin A&D) 1 applic TP Q8 PRN PRN Reason: dry skin - Labs Labs: 02/01/18 08:30 02/02/18 05:55 PT 12.9 Seconds (9.8-13.1) 01/31/18 06:40 INR 1.2 (0.9-1.2) 01/31/18 06:40 APTT 35.7 Seconds (25.6-37.1) 01/31/18 06:40 - Constitutional Appears: Well, No Acute Distress - Head Exam Head Exam: ATRAUMATIC, NORMOCEPHALIC - Eye Exam Eye Exam: Normal appearance - ENT Exam ENT Exam: Mucous Membranes Moist, Normal Exam Additional comments: NG tube intact - Neck Exam Neck Exam: Normal Inspection - Respiratory Exam Respiratory Exam: Clear to Ausculation Bilateral, NORMAL BREATHING PATTERN. absent: Rales, Rhonchi, Wheezes, Respiratory Distress - Cardiovascular Exam Cardiovascular Exam: REGULAR RHYTHM, +S1, +S2 - GI/Abdominal Exam GI & Abdominal Exam: Soft, Normal Bowel Sounds. absent: Distended, Firm, Guarding, Rigid, Tenderness, Organomegaly - Extremities Exam Extremities Exam: absent: Joint Swelling, Pedal Edema - Neurological Exam Neurological Exam: Alert, Awake, Oriented x3 - Psychiatric Exam Psychiatric exam: Normal Affect, Normal Mood - Skin Skin Exam: Dry, Intact, Normal Color, Warm Assessment and Plan - Assessment and Plan (Free Text) Assessment: Debora Villanueva is a 72 F w PMH of colon CA s/p colectomy, chemo?, H. Pylori , DM and dementia came with weakness, epigastric pain, intractable nausea and vomiting.CT Abd/Pelv revealed proximal small bowel jejuno-jejunal intussusception with markedly dilated stomach and duodenum jejuno-jejunal intussusception SBO 2/2 above intractable nausea and vomiting 2/2 above Weightloss Hx. of h. pylori Plan Not a surgical cannidate as per Surgery Keep NPO agree with NG tube NG care as per surgery since the location of the intussusception is in the jejuem, recommend balloon enteroscopy at [facility] or [place] [facility]. continue IV fluids spoke with Primary team, they will initiate a medicine to medicine transfer for balloon enteroscopy will D/W Dr. Hewitt <Brandy Hewitt - Last Filed: 02/02/18 11:40> Objective - Vital Signs/Intake and Output Vital Signs (last 24 hours): Temp Pulse Resp BP Pulse Ox 98.8 F 92 H 20 143/66 98 02/02/18 08:23 02/02/18 08:23 02/02/18 08:23 02/02/18 08:23 02/02/18 08:23 - Medications Medications: Current Medications Acetaminophen (Tylenol 325mg Tab) 650 mg PO Q6 PRN PRN Reason: Headache Last Admin: 01/29/18 10:12 Dose: 650 mg Acetaminophen (Tylenol 650 Mg Supp) 650 mg HI Q6 PRN PRN Reason: Fever >100.4 F Stop: 02/08/18 08:00 Atorvastatin Calcium (Lipitor) 20 mg PO HS [facility] Last Admin: 01/31/18 21:39 Dose: Not Given Dextrose (Dextrose 50% Inj) 0 ml IV STAT PRN; Protocol PRN Reason: Hypoglycemia Protocol Dextrose (Glutose 15) 0 gm PO ONCE PRN; Protocol PRN Reason: Hypoglycemia Protocol Donepezil HCl (Aricept) 5 mg PO HS [facility] Last Admin: 01/31/18 21:39 Dose: Not Given Gabapentin (Neurontin) 100 mg PO TID PRN PRN Reason: Pain, moderate (4-7) Glucagon (Glucagen Diagnostic Kit) 0 mg IM STAT PRN; Protocol PRN Reason: Hypoglycemia Protocol Guaifenesin (Mucinex La) 600 mg PO Q12 [facility] Last Admin: 02/01/18 09:39 Dose: Not Given Heparin Sodium (Porcine) (Heparin) 5,000 units SC Q8 [facility] PRN Reason: Protocol Last Admin: 02/02/18 08:49 Dose: 5,000 units Lactated Ringer's (Lactated Ringer's) 1,000 mls @ 100 mls/hr IV .Q10H [facility] Last Admin: 02/02/18 08:47 Dose: 100 mls/hr Potassium Chloride (Potassium Cl 10meq/50ml Sterile Water) 50 mls @ 50 mls/hr IVPB Q1 [facility] Stop: 02/02/18 14:59 Insulin Human Lispro (Humalog) 0 units SC TID [facility] PRN Reason: Protocol Last Admin: 02/02/18 09:05 Dose: Not Given Lidocaine (Lidoderm) 1 ea TD DAILY [facility] Last Admin: 02/02/18 08:50 Dose: 1 ea Nicotine (Nicoderm Cq) 1 patch TD DAILY [facility] Last Admin: 02/02/18 08:49 Dose: 1 patch Ondansetron HCl (Zofran Inj) 4 mg IVP Q4 PRN PRN Reason: Nausea/Vomiting Last Admin: 01/30/18 15:42 Dose: 4 mg Pantoprazole Sodium (Protonix Inj) 40 mg IVP DAILY [facility] Last Admin: 02/02/18 08:48 Dose: 40 mg Vitamin A (Vitamin A&D) 1 applic TP Q8 PRN PRN Reason: dry skin - Labs Labs: 02/01/18 08:30 02/02/18 05:55 PT 12.9 Seconds (9.8-13.1) 01/31/18 06:40 INR 1.2 (0.9-1.2) 01/31/18 06:40 APTT 35.7 Seconds (25.6-37.1) 01/31/18 06:40 Attending/Attestation - Attestation I have personally seen and examined this patient.: Yes I have fully participated in the care of the patient.: Yes I have reviewed all pertinent clinical information, including history, physical exam and plan: Yes Notes (Text): 02/02/18 11:38 Patient seen this am on GI rounds. This is a 72 yr old F with PMH of colon CA s/ p colectomy, chemo?, H. Pylori infection diagnosed in with last EGD/ colonoscopy in May 2018 with tortourous colon but complete exam, DM and dementia came now admitted with weakness, epigastric pain, intractable nausea and vomiting with decreasing NG output. CT Abdomen and pelvis revealed proximal small bowel jejuno-jejunal intussusception with markedly dilated stomach and duodenum and a palpable mass in lower abdomen with decreased bowel sounds. Surgery recs appreciated. Patient has been accepted for transfer to [facility] for double balloon enteroscopy as she recently had regular luminal exam. Keep npo and IVF and replete electrolytes. Rest of care as per surgical service. Thank you for letting us participate in the care of your patient
[2018-02-02] MEDS ORDERED: Potassium CL 10mEq/100ml 100 ML IVPB SCH (10:00)
[2018-02-02] MEDS: Potassium CL 10 MEQ/50 ML 50 ML IVPB SCH ×4 (11:50→15:13)
--- NOTE | 2018-02-02 14:15 | CP.PCM.DIS ---
Provider - Provider Date of Admission: 01/29/18 03:43 Attending physician: Tali Stern MD Time Spent in preparation of Discharge (in minutes): 35 Diagnosis - Discharge Diagnosis (1) Intussusception of jejunum Status: Acute (2) Hypokalemia Status: Acute (3) Hypomagnesemia Status: Acute (4) Hypophosphatemia Status: Acute (5) CAITLYN (acute kidney injury) Status: Acute Hospital Course - Lab Results Lab Results: Micro Results 01/29/18 02:25 Blood Blood Culture - Preliminary NO GROWTH AFTER 4 DAYS 01/29/18 01:55 Blood Blood Culture - Preliminary NO GROWTH AFTER 4 DAYS 01/29/18 06:24 Urine,Grant Urine Culture - Final No Growth (<1,000 CFU/ML) Most Recent Lab Values WBC 5.0 K/uL (4.8-10.8) 02/01/18 08:30 RBC 4.08 Mil/uL (3.80-5.20) 02/01/18 08:30 Hgb 12.6 g/dL (12.0-16.0) 02/01/18 08:30 Hct 36.6 % (34.0-47.0) 02/01/18 08:30 MCV 89.7 fl (81.0-99.0) 02/01/18 08:30 MCH 30.9 pg (27.0-31.0) 02/01/18 08:30 MCHC 34.4 g/dL (33.0-37.0) 02/01/18 08:30 RDW 14.6 % (11.5-14.5) H 02/01/18 08:30 Plt Count 149 K/uL (130-400) 02/01/18 08:30 MPV 8.6 fl (7.2-11.7) 02/01/18 08:30 Neut % (Auto) 74.4 % (50.0-75.0) 02/01/18 08:30 Lymph % (Auto) 14.5 % (20.0-40.0) L 02/01/18 08:30 Holt % (Auto) 10.4 % (0.0-10.0) H 02/01/18 08:30 Eos % (Auto) 0.3 % (0.0-4.0) 02/01/18 08:30 Baso % (Auto) 0.4 % (0.0-2.0) 02/01/18 08:30 Neut # (Auto) 3.8 K/uL (1.8-7.0) 02/01/18 08:30 Lymph # (Auto) 0.7 K/uL (1.0-4.3) L 02/01/18 08:30 Holt # (Auto) 0.5 K/uL (0.0-0.8) 02/01/18 08:30 Eos # (Auto) 0.0 K/uL (0.0-0.7) 02/01/18 08:30 Baso # (Auto) 0.0 K/uL (0.0-0.2) 02/01/18 08:30 Neutrophils % (Manual) 83 % (42-75) H 01/29/18 01:55 Lymphocytes % (Manual) 9 % (20-50) L 01/29/18 01:55 Monocytes % (Manual) 5 % (0-10) 01/29/18 01:55 Myelocytes % 3 % (0-0) H 01/29/18 01:55 Platelet Estimate Normal (NORMAL) 01/29/18 01:55 Hypochromasia (manual) Slight 01/29/18 01:55 Anisocytosis (manual) Slight 01/29/18 01:55 Ovalocytes Slight 01/29/18 01:55 Schistocytes Slight 01/29/18 01:55 PT 12.9 Seconds (9.8-13.1) 01/31/18 06:40 INR 1.2 (0.9-1.2) 01/31/18 06:40 APTT 35.7 Seconds (25.6-37.1) 01/31/18 06:40 Sodium 139 mmol/l (132-148) 02/02/18 05:55 Potassium 3.1 MMOL/L (3.6-5.0) L 02/02/18 05:55 Chloride 96 mmol/L (98-107) L 02/02/18 05:55 Carbon Dioxide 33 mmol/L (22-30) H 02/02/18 05:55 Anion Gap 13 (10-20) 02/02/18 05:55 BUN 12 mg/dl (7-17) 02/02/18 05:55 Creatinine 0.6 mg/dl (0.7-1.2) L 02/02/18 05:55 Est GFR ( Amer) > 60 02/02/18 05:55 Est GFR (Non-Af Amer) > 60 02/02/18 05:55 POC Glucose (mg/dL) 149 mg/dL (65-110) H 02/02/18 06:05 Random Glucose 155 mg/dL (65-105) H 02/02/18 05:55 Hemoglobin A1c 7.1 % (4.2-6.5) H D 01/29/18 06:49 Lactic Acid 1.1 MMOL/L (0.7-2.1) 01/31/18 06:40 Calcium 8.8 mg/dL (8.4-10.2) 02/02/18 05:55 Phosphorus 2.1 mg/dl (2.5-4.5) L 02/02/18 05:55 Magnesium 2.0 MG/DL (1.6-2.3) 02/02/18 05:55 Total Bilirubin 0.7 mg/dl (0.2-1.3) 01/29/18 01:55 AST 26 U/L (14-36) 01/29/18 01:55 ALT 14 U/L (9-52) 01/29/18 01:55 Alkaline Phosphatase 73 U/L (38-126) 01/29/18 01:55 NT-Pro-B Natriuret Pep 834 pg/ml (0-900) 01/31/18 06:40 Total Protein 8.2 G/DL (6.3-8.2) 01/29/18 01:55 Albumin 4.8 g/dL (3.5-5.0) 01/29/18 01:55 Globulin 3.4 gm/dL (2.2-3.9) 01/29/18 01:55 Albumin/Globulin Ratio 1.4 (1.0-2.1) 01/29/18 01:55 Triglycerides 77 mg/DL (0-149) 01/29/18 09:57 Cholesterol 211 mg/dL (0-199) H 01/29/18 09:57 LDL Cholesterol Direct 94 mg/dL (0-129) 01/29/18 09:57 HDL Cholesterol 64 MG/DL (30-70) 01/29/18 09:57 Carcinoembryonic Ag 4.4 ng/mL (0-3.0) H 01/31/18 06:40 Urine Color Yellow (YELLOW) 01/29/18 06:55 Urine Clarity Slighty-cloudy (Clear) 01/29/18 06:55 Urine pH 5.0 (5.0-8.0) 01/29/18 06:55 Ur Specific [place] 1.019 (1.003-1.030) 01/29/18 06:55 Urine Protein Negative mg/dL (NEGATIVE) 01/29/18 06:55 Urine Glucose (UA) Neg mg/dL (Normal) 01/29/18 06:55 Urine Ketones Negative mg/dL (NEGATIVE) 01/29/18 06:55 Urine Blood Negative (NEGATIVE) 01/29/18 06:55 Urine Nitrate Negative (NEGATIVE) 01/29/18 06:55 Urine Bilirubin Negative (NEGATIVE) 01/29/18 06:55 Urine Urobilinogen 0.2-1.0 mg/dL (0.2-1.0) 01/29/18 06:55 Ur Leukocyte Esterase Neg [place]/uL (Negative) 01/29/18 06:55 Urine RBC (Auto) 5 /hpf (0-3) H 01/29/18 06:55 Urine Microscopic WBC < 1 /hpf (0-5) 01/29/18 06:55 Ur Squamous Epith Cells < 1 /hpf (0-5) 01/29/18 06:55 Hyaline Casts 6-10 /hpf (0-2) H 01/29/18 06:55 Ur Random Sodium 50 meq/L 01/29/18 06:49 Ur Random Potassium 100.2 mmol/L 01/29/18 06:49 - Hospital Course Hospital Course: 72 y/o F with PMHx of HTN, NIDDM, Dementia, Colon CA s/p partial colectomy came to ER w/ abdominal pain, n/v, and weakness. CMP showed electrolyte abnormalities (K+, Phos, mag deficiencesy, replaced) and CAITLYN 2/2 dehydration, which resolved w/ IV hydration. She was also found to have intussusception on CT. Surgery deemed her a poor surgical candidate. GI managed patient w/ NGT to decompress fluid (total output ~3L green bilious fluid) and recommended double lumen enteroscopy. Patient was transferred to [facility] for this procedure. - Date & Time of H&P Date of H&P: 01/29/18 Time of H&P: 04:47 Discharge Exam - Head Exam Head Exam: ATRAUMATIC, NORMAL INSPECTION, NORMOCEPHALIC - Eye Exam Eye Exam: Normal appearance - Respiratory Exam Respiratory Exam: Clear to PA & Lateral, NORMAL BREATHING PATTERN - Cardiovascular Exam Cardiovascular Exam: REGULAR RHYTHM, +S1, +S2 - GI/Abdominal Exam GI & Abdominal Exam: Normal Bowel Sounds, Soft, Tenderness. absent: Distended - Neurological Exam Neurological exam: Alert - Skin Skin Exam: Dry, Intact, Warm Discharge Plan - Follow Up Plan Disposition: [facility] HOSP BASED [facility] APPROVE Instructions: Generalized Weakness (DC), Headache, Adult (DC) Additional Instructions: follow up with primary MD 1 week Referrals: Kip Arteaga MD [Family Provider] -
== END 2018-02-02 15:30 | disposition short-term general hospital (02) | DRG 683 ==
LOC: H.ER 23:50 → H.ERHOLD 01-29 03:43 → H.MEDSURG1 01-29 08:17
PROVIDERS: ADMIT Family Medicine Geriatric Medicine; ATTEND Family Medicine Geriatric Medicine
PROC: 0D9670Z Drainage of Stomach with Drainage Device, Via Natural or Artificial Opening (ICD-10-PCS; principal; 2018-01-31)
DX: N17.9 Acute kidney failure, unspecified (principal); K56.1 Intussusception; E87.6 Hypokalemia; E86.0 Dehydration; E11.65 Type 2 diabetes mellitus with hyperglycemia; E83.42 Hypomagnesemia; E83.39 Other disorders of phosphorus metabolism; F03.90 Unspecified dementia, unspecified severity, without behavioral disturbance, psychotic disturbance, mood disturbance, and anxiety; I10 Essential (primary) hypertension; E78.5 Hyperlipidemia, unspecified; E78.00 Pure hypercholesterolemia, unspecified; K29.70 Gastritis, unspecified, without bleeding; Z78.1 Physical restraint status; F17.210 Nicotine dependence, cigarettes, uncomplicated; H26.9 Unspecified cataract; Z85.038 Personal history of other malignant neoplasm of large intestine; Z86.19 Personal history of other infectious and parasitic diseases; Z79.84 Long term (current) use of oral hypoglycemic drugs; Z90.49 Acquired absence of other specified parts of digestive tract; Z90.710 Acquired absence of both cervix and uterus; Z86.010 Personal history of colon polyps; Z87.440 Personal history of urinary (tract) infections